=== PATIENT | female | born 1970 | race Caucasian/White ===

== ENCOUNTER → 2019-11-26 13:18 | Outpatient (CLI) | payer OTHER, SELFPAY | PROVIDERS: Family Provider Family Medicine; PCP Family Medicine; Visit Provider Physician Assistant | DX: R30.0 Dysuria (principal) | CPT/HCPCS: 87086 ==

== ENCOUNTER → 2019-12-05 13:28 | Outpatient (CLI) | payer OTHER, SELFPAY ==
--- NOTE | 2019-12-05 13:32 | DI.RAD.S_ITS ---
PROCEDURE: XR CHEST 2V INDICATIONS: [place] travel, cough, night sweats, r/o TB/pneumonia TECHNIQUE: 2 views of the chest were acquired. COMPARISON: None. FINDINGS: Surgical changes and devices: None. Lungs and pleura: No consolidative opacity. Diffuse increased pulmonary markings bilaterally. No pleural effusions or pneumothorax. Mediastinum: Mediastinal contours appear normal. Heart size is normal. Bones and chest wall: No suspicious bony abnormalities. Soft tissues appear unremarkable. IMPRESSION: Diffuse increased pulmonary markings bilaterally. This could be due to infectious/inflammatory etiology. No mediastinal adenopathy identified. Dictated by: Meño Fay M.D. on 12/05/2019 at 13:56 Approved by: Meño Fay M.D. on 12/05/2019 at 13:57
== END ==
PROVIDERS: Family Provider Family Medicine; PCP Family Medicine; Referring Provider Physician Assistant; Visit Provider Physician Assistant
DX: J40 Bronchitis, not specified as acute or chronic (principal); R05 Cough; R19.7 Diarrhea, unspecified; R61 Generalized hyperhidrosis
CPT/HCPCS: 71046; 87177; 87507

== ENCOUNTER → 2019-12-05 13:57 | Outpatient (CLI) | payer OTHER, SELFPAY ==
[2019-12-05 16:22] LABS: Adenovirus F 40/41 Not Detected (Not Detect); Astrovirus Not Detected (Not Detect); Campylobacter Not Detected (Not Detect); Clostridium difficile toxin AB Not Detected (Not Detect); Cryptosporidium Not Detected (Not Detect); Cyclospora cayetanensis Not Detected (Not Detect); Entamoeba histolytica Not Detected (Not Detect); Enteroaggregative E.coli Not Detected (Not Detect); Enteropathogenic E.coli Not Detected (Not Detect); Enterotoxigenic E.coli It/st Not Detected (Not Detect); Giardia lamblia Not Detected (Not Detect); Norovirus GI/GII Not Detected (Not Detect); Plesiomonsa shigelloides Not Detected (Not Detect); Rotavirus A Not Detected (Not Detect); Salmonella Not Detected (Not Detect); Sapovirus Not Detected (Not Detect); Shiga-like toxin-prod E.coli Not Detected (Not Detect); Shigella/Enteroinvasive E.coli Not Detected (Not Detect); Vibrio Not Detected (Not Detect); Vibrio cholerae Not Detected (Not Detect); Yersinia enterocolitica Not Detected (Not Detect)
== END ==
PROVIDERS: Family Provider Family Medicine; PCP Family Medicine; Referring Provider Physician Assistant; Visit Provider Physician Assistant
DX: R19.7 Diarrhea, unspecified (principal)
CPT/HCPCS: 87177; 87507

== ENCOUNTER → 2019-12-12 13:22 | Outpatient (CLI) | payer OTHER, SELFPAY ==
[2019-12-12 15:27] LABS: Add Manual Diff / Slide Review NO; Basophils Absolute Auto 100 /uL (0-100); Basophils Percent Auto 0.9 % (0-2); Eosinophils Absolute Auto 100 /uL (0-450); Eosinophils Percent Auto 0.6 % (2-4); Hematocrit 33.8 % (36-46); Hemoglobin 11.2 g/dL (12.0-16.0); Lymphocytes Absolute Auto 1500 /uL (1100-4500); Lymphocytes Percent Auto 11.8 % (25-40); Mean Corpuscular HGB Conc 33.3 % (30-36); Mean Corpuscular Hemoglobin 35.5 PG (26-34); Mean Corpuscular Volume 106.8 fL (80-100); Monocytes Absolute Auto 1400 /uL (0-900); Monocytes Percent Auto 11.4 % (3-14); Neutrophils Absolute Auto 9500 /uL (1500-7000); Neutrophils Percent Auto 75.3 % (50-75); Platelet Count 445 X10^3/uL (150-400); Red Blood Cell Count 3.16 X10^6/uL (4.0-5.2); Red Cell Distribution Width 14.2 % (11.6-14.8); White Blood Cell Count 12.7 X10^3/uL (4.5-11.0)
[2019-12-12 15:41] LABS: Alanine Aminotransferase 19 IU/L (<35); Albumin 3.3 g/dL (3.5-5.0); Albumin Globulin Ratio 0.8 (1.0-2.8); Alkaline Phosphatase 131 U/L (38-126); Aspartate Aminotransferase 37 IU/L (14-36); Bilirubin Total 0.6 mg/dL (0.2-1.3); Blood Urea Nitrogen 6 mg/dL (7-17); Calcium 8.9 mg/dL (8.4-10.2); Carbon Dioxide 27 mmol/L (22-32); Chloride 96 mmol/L (98-107); Estimated Glomerular Filt Rate > 60.0 mL/min (>60); Glucose 94 mg/dL (70-100); HEMOLYSIS < 15 (0-50); Lipase 76 U/L (23-300); Potassium 4.1 mmol/L (3.4-5.1); Sodium 133 mmol/L (137-145); Total Protein 7.3 g/dL (6.3-8.2)
== END ==
PROVIDERS: Family Provider Family Medicine; Referring Provider Nurse Practitioner; Visit Provider Nurse Practitioner
DX: R10.9 Unspecified abdominal pain (principal)
CPT/HCPCS: 36415; 80053; 83690; 85025

== ENCOUNTER → 2019-12-13 14:34 | Outpatient (CLI) | payer OTHER, SELFPAY ==
--- NOTE | 2019-12-13 14:36 | DI.US.S_ITS ---
PROCEDURE: US ABDOMEN LIMITED INDICATIONS: ELEVATED LIVER ENZYMES, EPIGASTRIC PAIN.EVALUATE GALLBLADDER TECHNIQUE: Real-time focused scanning was performed of the abdomen, with image documentation. COMPARISON: None. FINDINGS: Liver appears normal, gallbladder shows no evidence of inflammation or stones. Bile ducts are normal in caliber at 5.3 mm. The pancreas visualized is normal. Left kidney appears normal, right kidney shows severe hydronephrosis with duplex collecting system in the upper proximal right ureter is 2.3 cm with a lower proximal right ureter 2.6 cm area urinary bladder is empty. IMPRESSION: Source of elevated liver function tests is not found. Hydronephrosis on the right is noted with a duplex collecting system showing dilated proximal ureters to each of the 2 collecting systems on the right. The left kidney appears normal. Please correlate clinically for whether this is a known right-sided chronic morphologic anomaly for the patient, versus a new finding. If this is a new finding urology consultation is recommended and CT scanning may become necessary. Pelvic ultrasound is scheduled for tomorrow. Dictated by: Estevan Ellis M.D. on 12/13/2019 at 16:35 Approved by: Estevan Ellis M.D. on 12/13/2019 at 16:37
== END ==
PROVIDERS: Family Provider Family Medicine; Referring Provider Nurse Practitioner; Visit Provider Nurse Practitioner
DX: R10.13 Epigastric pain (principal); R74.8 Abnormal levels of other serum enzymes; N13.30 Unspecified hydronephrosis; Q62.5 Duplication of ureter
CPT/HCPCS: 76705

== ENCOUNTER → 2019-12-14 13:32 | Outpatient (CLI) | payer OTHER, SELFPAY ==
--- NOTE | 2019-12-14 13:33 | DI.US.S_ITS ---
PROCEDURE: US PELVIC COMPLETE INDICATIONS: MID/LOWER ABD/PELVIC PAIN X 3 WEEKS TECHNIQUE: Real-time scanning was performed of the pelvic organs, with image documentation. Additional endovaginal scanning was necessary due to incomplete visualization of the adnexal and endometrial structures by transabdominal scanning. COMPARISON: [facility], , US ABDOMEN LIMITED, 12/13/2019, 14:47. FINDINGS: Transabdominal scanning: Limited scanning through the kidneys shows no hydronephrosis. No pathologic free abdominal or pelvic fluid. Endovaginal scanning: Uterus: Uterus is normal in size at 4.0 x 5.3 x 8.8 cm, anteverted. The endometrium measures 3.4 mm in combined thickness, with a centrally positioned IUD.. Ovaries: At what appears to be a right adnexal structures an ovoid 3.9 x 3.1 x 4.1 cm masslike structure can be seen, and it is unclear whether this could represent a independent adnexal solid mass from the right ovary, versus an exophytic subserosal fibroid. The left ovary measures 2.6 x 1.4 x 2.3 cm. It contains a small moderately complex 1.0 x 1.3 x 1.7 cm cyst. IMPRESSION: 1. The ultrasound of the abdomen yesterday had identified a moderate degree of hydronephrosis and the finding of what appears to be a potential right ovarian solid mass impinging on the expected course of the distal right ureter is a worrisome finding for possible underlying malignancy. Pelvic MR is recommended without and with contrast for more accurate assessment. The ultrasound findings are insufficient to establish a definitive diagnosis and gynecological consultation also is anticipated. 2. IUD in central position within the endometrial canal. Dictated by: Estevan Ellis M.D. on 12/14/2019 at 15:40 Approved by: Estevan Ellis M.D. on 12/14/2019 at 15:46
== END ==
PROVIDERS: Family Provider Family Medicine; Referring Provider Nurse Practitioner; Visit Provider Nurse Practitioner
DX: R10.2 Pelvic and perineal pain (principal); R10.30 Lower abdominal pain, unspecified; N83.292 Other ovarian cyst, left side; Z97.5 Presence of (intrauterine) contraceptive device
CPT/HCPCS: 76830; 76856

== ENCOUNTER 2019-12-25 11:53 | Emergency (ER) | payer OTHER, SELFPAY ==
[2019-12-25 12:12] VITALS: BP 102/67; PULSE 105; RESP 18; TEMP 36.7; O2SAT 99
[2019-12-25] MEDS: SODIUM CHLORIDE 0.9% 1,000 ML 1000 ML IV (12:34)
[2019-12-25 12:39] LABS: Add Manual Diff / Slide Review NO; Basophils Absolute Auto 0 /uL (0-100); Basophils Percent Auto 0.2 % (0-2); Eosinophils Absolute Auto 100 /uL (0-450); Eosinophils Percent Auto 0.7 % (2-4); Lymphocytes Absolute Auto 1100 /uL (1100-4500); Lymphocytes Percent Auto 9.1 % (25-40); Mean Corpuscular HGB Conc 33.4 % (30-36); Mean Corpuscular Hemoglobin 34.6 PG (26-34); Mean Corpuscular Volume 103.6 fL (80-100); Monocytes Absolute Auto 1400 /uL (0-900); Monocytes Percent Auto 12.5 % (3-14); Neutrophils Absolute Auto 9000 /uL (1500-7000); Neutrophils Percent Auto 77.5 % (50-75); Platelet Count 449 X10^3/uL (150-400); Red Cell Distribution Width 14.5 % (11.6-14.8); White Blood Cell Count 11.6 X10^3/uL (4.5-11.0)
[2019-12-25 12:45] LABS: INR 1.4 (0.9-1.3); Prothrombin Time 16.4 SECONDS (10.1-12.7)
[2019-12-25 12:48] LABS: PTT Partial Thromboplastin Tim 31 SECONDS (26.4-36.2)
[2019-12-25 12:49] LABS: Alanine Aminotransferase 17 IU/L (<35); Albumin Globulin Ratio 0.7 (1.0-2.8); Alkaline Phosphatase 163 U/L (38-126); Aspartate Aminotransferase 36 IU/L (14-36); Bilirubin Total 0.8 mg/dL (0.2-1.3); Blood Urea Nitrogen 6 mg/dL (7-17); Calcium 8.7 mg/dL (8.4-10.2); Carbon Dioxide 23 mmol/L (22-32); Chloride 102 mmol/L (98-107); Estimated Glomerular Filt Rate > 60.0 mL/min (>60); Globulin 4.3 g/dL (1.7-4.1); Glucose 107 mg/dL (70-100); Lipase 42 U/L (23-300); Potassium 3.9 mmol/L (3.4-5.1); Sodium 135 mmol/L (137-145); Total Protein 7.3 g/dL (6.3-8.2)
[2019-12-25 12:50] LABS: Lactate (Lactic Acid) 0.9 mmol/L (0.7-2.1)
[2019-12-25 12:52] LABS: HEMOLYSIS 70 (0-50)
[2019-12-25 13:00] VITALS: BP 92/59; PULSE 73; O2SAT 99
[2019-12-25 13:12] LABS: Procalcitonin 24.57 ng/mL (<0.5)
[2019-12-25 13:50] LABS: Magnesium 1.6 mg/dL (1.6-2.3)
[2019-12-25 13:52] LABS: Appearance Urine UA SL CLOUDY; Bilirubin Urine UA NEGATIVE (NEGATIVE); Color Urine UA YELLOW; Glucose Urine UA NEGATIVE (Negative); Ketones Urine UA TRACE (NEGATIVE); Leukocyte Esterase Urine UA 1+ (NEGATIVE); Nitrite Urine UA NEGATIVE (Negative); Occult Blood Urine UA NEGATIVE (Negative); Protein Urine UA TRACE (Negative); Specific Gravity Urine UA <=1.005 (1.000-1.035); Urobilinogen Urine UA 0.2 E.U./dL (0.2); pH Urine UA 6.5 (4.5-8.0)
[2019-12-25 13:55] LABS: RBC Urine 0-1/HPF (0-5/HPF); Squamous Epithelial Cell Urine 10-30 /HPF (0-5/HPF); WBC Urine 10-30/HPF (0-5/HPF)
[2019-12-25 13:56] LABS: Bacteria Urine Many (>30); Culture Indicated Urine Cult Not Indicated
--- NOTE | 2019-12-25 14:08 | ED.NAVMDI ---
HPI - Nausea/Vomiting/Diarrhea <MELANIE Carlson - Last Filed: 12/25/19 22:27> General Chief complaint: Nausea/Vomiting/Diarrhea Stated complaint: Cant eat x3days,Diarhea Time Seen by Provider: 12/25/19 12:31 Source: patient Mode of arrival: Ambulatory Limitations: no limitations History of Present Illness HPI Narrative: This is a 49 year female, smoker, who presents to ED with chief complain of constant bilateral low abdominal discomfort, not feeling well, chronic diarrhea without blood, decreased appetite with occasional fever and chills. Patient reports she was seen at walk-in clinic a few days ago and had extensive workup done including stools tests, blood tests, pelvic/abdomen ultrasound tests. Imaging/lab tests showed right kidney hydronephrosis, elevated LFTs and right ovarian solid mass impinging on the expected course of the right ureter is worrisome findings for possible malignancy and it was suggested for pelvic MR and this is scheduled for tomorrow at 0645 with an initial appointment with [facility] specialist at [facility] during the afternoon. Related Data Home Medications Medication Instructions Recorded Confirmed [fiber] #0 06/13/17 12/12/19 [liver] #0 06/13/17 12/12/19 biotin 2,500 mcg PO #0 06/13/17 12/12/19 lysine HCl 500 mg PO #0 06/13/17 12/12/19 Previous Rx's Medication Instructions Recorded benzonatate 100 mg capsule 100 mg PO BID PRN #20 cap 12/05/19 hydrocodone-acetaminophen [[place]] 1 tab PO Q8H PRN #7 tab 12/25/19 ondansetron 4 mg PO Q8-12H PRN #7 tab 12/25/19 Allergies Allergy/AdvReac Type Severity Reaction Status Date / Time No Known Drug Allergies Allergy Verified 12/25/19 12:18 Review of Systems <MELANIE Carlson - Last Filed: 12/25/19 22:27> Review of Systems Narrative: General: Denies fever, (+) chills, (+) fatigue, (+) malaise, sweats. HEENT: Denies sinus pain, ear pain, sore throat, difficulty swallowing, dizziness. Respiratory: Denies dyspnea, cough, wheezing, hemoptysis, sputum. Cardiovascular: Denies chest pain, palpitations, orthopnea, edema. Gastrointestinal: Denies (+) nausea, vomiting, abdominal pain, (+) diarrhea, constipation, melena. : Denies ) dysuria, (+) frequency, incontinence, hematuria, urinary retention. Musculoskeletal: Denies weakness, joint pain or bony pain. Skin: Denies rash, skin lesions, or other. Neurologic: Denies weakness, headache, numbness, change in speech, confusion, seizures, incoordination. Psychiatric: No concerning psychosocial issues. 12-point review of systems is negative except for those stated above. Patient History <MELANIE Carlson - Last Filed: 12/25/19 22:27> Medical History Bronchitis (Acute) Diarrhea (Acute) Social History Smoking Status: Current every day smoker Smoking Status: Current every day smoker alcohol intake frequency: 3 or more drinks per day (2 wine bottles a day) Substance Use Type: does not use Exam <MELANIE Carlson - Last Filed: 12/25/19 22:27> Narrative Exam Narrative: GEN: Alert, oriented x 3, thin appearing and under nourished, and in no acute distress. Head: Normal cephalic, atraumatic. No scalp or temporal tenderness, palpable mass or rash. EYES: Pupils are equal, round, and reactive to light and accommodation. Extraocular muscles are intact bilaterally. There is no subconjunctival hemorrhage, exudate and sclera non-icteric. ENT: Bilateral auditory canals and tympanic membranes clear. Hearing grossly intact. Nose without bleeding, purulent discharge or deviation. Facial sinuses nontender to palpate. Mucous membrane moist, no mucosal lesion. Throat without erythema, tonsillar hypertrophy or exudate. Uvula in midline, airway patent. Neck: Trachea in midline. No JVD, non-tender without lymphadenopathy. No masses or thyroid megaly. Supple, non-tender and no meningeal signs. CARDIAC: Normal regular rate and rhythm without murmurs, gallops, or rubs. No chest wall tenderness. No peripheral edema, cyanosis or pallor. Capillary refill is less than 2 seconds. RESPIRATORY: Lungs are clear to auscultate bilaterally. No cough, wheezes, rales, or rhonchi. No stridor, respiratory distress, increase work of breathing, or accessary muscle used. ABD: Abdomen soft, mild TTP on lower abdomen and non-distended. No guarding or rebound tenderness to palpate. Bowel sounds are normal in all 4 quadrants. There is no palpable masses or organomegaly. EXT: Full painless ROM of all extremities with no loss of sensation, strength, effusion or edema. SKIN: Warm, dry, normal color for patient. No erythema, lesions or rash over visible areas. BACK: Nontender without deformity or crepitance. No flank tenderness. NEUROLOGICAL: Alert and oriented to place, time and person. Sensation and motor function intact bilaterally. No facial droops, dysphasia. PSYCHIATRIC: Good judgement and reason, without hallucinations, abnormal affect or abnormal behaviors during the examination. Patient is not suicidal. Initial Vital Signs Initial Vital Signs: Vital Signs Temperature 98.1 F 12/25/19 12:12 Pulse Rate 105 H 12/25/19 12:12 Respiratory Rate 18 12/25/19 12:12 Blood Pressure 102/67 12/25/19 12:12 Pulse Oximetry 99 12/25/19 12:12 <Jaime Caballero DO - Last Filed: 12/26/19 06:58> Initial Vital Signs Initial Vital Signs: Vital Signs Temperature 98.1 F 12/25/19 12:12 Pulse Rate 105 H 12/25/19 12:12 Respiratory Rate 18 12/25/19 12:12 Blood Pressure 102/67 12/25/19 12:12 Pulse Oximetry 99 12/25/19 12:12 Scores <MELANIE Carlson - Last Filed: 12/25/19 22:27> GCS Adriana coma scale eye opening: Spontaneous [place] coma scale verbal response: Orientated Adriana coma scale motor response: Obey commands Wy[place] coma scale total score: 15 Course <MELANIE Carlson - Last Filed: 12/25/19 22:27> Orders Ordered: Discontinued Medications Sodium Chloride (Normal Saline 0.9%) 1,000 mls @ 1,000 mls/hr IV BOLUS ONE Stop: 12/25/19 13:18 Last Infusion: 12/25/19 13:38 Dose: 0 mls/hr Documented by: Admin: 12/25/19 12:34 Dose: 1,000 mls/hr Documented by: VANITA Vital Signs Vital signs: Vital Signs - 8 hr 12/25/19 14:15 12/25/19 15:16 Pulse Rate 77 77 Respiratory Rate 15 Blood Pressure [Left Arm] 105/62 97/63 Pulse Oximetry 98 96 <Jaime Caballero DO - Last Filed: 12/26/19 06:58> Orders Ordered: Discontinued Medications Sodium Chloride (Normal Saline 0.9%) 1,000 mls @ 1,000 mls/hr IV BOLUS ONE Stop: 12/25/19 13:18 Last Infusion: 12/25/19 13:38 Dose: 0 mls/hr Documented by: Admin: 12/25/19 12:34 Dose: 1,000 mls/hr Documented by: VANITA Vital Signs Vital signs: Vital Signs - 8 hr 12/25/19 14:15 12/25/19 15:16 Pulse Rate 77 77 Respiratory Rate 15 Blood Pressure [Left Arm] 105/62 97/63 Pulse Oximetry 98 96 MDM - Nausea/Vomiting/Diarrhea <MELANIE Carlson - Last Filed: 12/25/19 22:27> Differential Diagnosis Differential diagnosis: Likely traveler's diarrhea, gastroenteritis, dehydration and other (pelvic mass, pelvic abscess) Medical Records Attestation: I reviewed the patient's medical records. Lab Data Attestation: I reviewed the patient's lab results. Result diagrams: 12/25/19 12:25 12/25/19 12:25 Labs: Lab Results 12/25/19 12/25/19 12/25/19 Range/Units 12:25 12:25 12:25 WBC 11.6 H (4.5-11.0) X10^3/uL RBC 2.90 L (4.0-5.2) X10^6/uL Hgb 10.0 L (12.0-16.0) g/dL Hct 30.0 L (36-46) % MCV 103.6 H (80-100) fL MCH 34.6 H (26-34) PG MCHC 33.4 (30-36) % RDW 14.5 (11.6-14.8) % Plt Count 449 H (150-400) X10^3/uL Neut % (Auto) 77.5 H (50-75) % Lymph % (Auto) 9.1 L (25-40) % [place] % (Auto) 12.5 (3-14) % Eos % (Auto) 0.7 L (2-4) % Baso % (Auto) 0.2 (0-2) % Neut # (Auto) 9000 H (7726-6782) /uL Lymph # (Auto) 1100 (2316-6877) /uL [place] # (Auto) 1400 H (0-900) /uL Eos # (Auto) 100 (0-450) /uL Baso # (Auto) 0 (0-100) /uL PT 16.4 H (10.1-12.7) SECONDS INR 1.4 H (0.9-1.3) APTT 31 (26.4-36.2) SECONDS Sodium (137-145) mmol/L Potassium (3.4-5.1) mmol/L Chloride (98-107) mmol/L Carbon Dioxide (22-32) mmol/L BUN (7-17) mg/dL Creatinine (0.52-1.04) mg/dL Estimated GFR (>60) mL/min BUN/Creatinine Ratio (6-22) Glucose (70-100) mg/dL Lactate (0.7-2.1) mmol/L Calcium (8.4-10.2) mg/dL Magnesium (1.6-2.3) mg/dL Total Bilirubin (0.2-1.3) mg/dL AST (14-36) IU/L ALT (<35) IU/L Alkaline Phosphatase (38-126) U/L Total Protein (6.3-8.2) g/dL Albumin (3.5-5.0) g/dL Globulin (1.7-4.1) g/dL Albumin/Globulin Ratio (1.0-2.8) Lipase (23-300) U/L Procalcitonin 24.57 H (<0.5) ng/mL Urine Color Urine Appearance Urine pH (4.5-8.0) Ur Specific [place] (1.000-1.035) Urine Protein (Negative) Urine Glucose (UA) (Negative) g/dL Urine Ketones (NEGATIVE) Urine Occult Blood (Negative) Urine Nitrate (Negative) Urine Bilirubin (NEGATIVE) Urine Urobilinogen (0.2) E.U./dL Ur Leukocyte Esterase (NEGATIVE) Urine RBC (0-5/HPF) Urine WBC (0-5/HPF) Ur Squamous Epith Cells (0-5/HPF) Urine Bacteria (None) Ur Culture Indicated? Stl C. cayetanensis PCR (Not Detect) Stool Rotavirus (PCR) (Not Detect) Stool Adenovirus (PCR) (Not Detect) Stool Astrovirus (PCR) (Not Detect) Stool Cryptosporidium PCR (Not Detect) Stl E.coli Shiga Tox PCR (Not Detect) St Sh/Enteroin Ecoli PCR (Not Detect) Stool E coli O157 PCR Stl Enterotoxigenic E PCR (Not Detect) Stool EPEC (PCR) (Not Detect) Stl E. histolytica PCR (Not Detect) Stool Giardia Lamblia PCR (Not Detect) Stool Sapovirus (PCR) (Not Detect) Stl P. shigelloides PCR (Not Detect) St Y.enterocolitica PCR (Not Detect) Stool Vibrio (PCR) (Not Detect) Stl Vibrio cholerae PCR (Not Detect) Stl Enteroaggr Ecoli PCR (Not Detect) Stl Norovirus GI/GII PCR (Not Detect) Campylobacter (PCR) (Not Detect) C. difficile Tox (PCR) (Not Detect) Salmonella (PCR) (Not Detect) 12/25/19 12/25/19 12/25/19 Range/Units 12:25 12:25 12:25 WBC (4.5-11.0) X10^3/uL RBC (4.0-5.2) X10^6/uL Hgb (12.0-16.0) g/dL Hct (36-46) % MCV (80-100) fL MCH (26-34) PG MCHC (30-36) % RDW (11.6-14.8) % Plt Count (150-400) X10^3/uL Neut % (Auto) (50-75) % Lymph % (Auto) (25-40) % [place] % (Auto) (3-14) % Eos % (Auto) (2-4) % Baso % (Auto) (0-2) % Neut # (Auto) (7615-7147) /uL Lymph # (Auto) (9772-3391) /uL [place] # (Auto) (0-900) /uL Eos # (Auto) (0-450) /uL Baso # (Auto) (0-100) /uL PT (10.1-12.7) SECONDS INR (0.9-1.3) APTT (26.4-36.2) SECONDS Sodium 135 L (137-145) mmol/L Potassium 3.9 (3.4-5.1) mmol/L Chloride 102 (98-107) mmol/L Carbon Dioxide 23 (22-32) mmol/L BUN 6 L (7-17) mg/dL Creatinine 0.40 L (0.52-1.04) mg/dL Estimated GFR > 60.0 (>60) mL/min BUN/Creatinine Ratio 15.0 (6-22) Glucose 107 H (70-100) mg/dL Lactate 0.9 (0.7-2.1) mmol/L Calcium 8.7 (8.4-10.2) mg/dL Magnesium 1.6 (1.6-2.3) mg/dL Total Bilirubin 0.8 (0.2-1.3) mg/dL AST 36 (14-36) IU/L ALT 17 (<35) IU/L Alkaline Phosphatase 163 H (38-126) U/L Total Protein 7.3 (6.3-8.2) g/dL Albumin 3.0 L (3.5-5.0) g/dL Globulin 4.3 H (1.7-4.1) g/dL Albumin/Globulin Ratio 0.7 L (1.0-2.8) Lipase 42 (23-300) U/L Procalcitonin (<0.5) ng/mL Urine Color Urine Appearance Urine pH (4.5-8.0) Ur Specific [place] (1.000-1.035) Urine Protein (Negative) Urine Glucose (UA) (Negative) g/dL Urine Ketones (NEGATIVE) Urine Occult Blood (Negative) Urine Nitrate (Negative) Urine Bilirubin (NEGATIVE) Urine Urobilinogen (0.2) E.U./dL Ur Leukocyte Esterase (NEGATIVE) Urine RBC (0-5/HPF) Urine WBC (0-5/HPF) Ur Squamous Epith Cells (0-5/HPF) Urine Bacteria (None) Ur Culture Indicated? Stl C. cayetanensis PCR (Not Detect) Stool Rotavirus (PCR) (Not Detect) Stool Adenovirus (PCR) (Not Detect) Stool Astrovirus (PCR) (Not Detect) Stool Cryptosporidium PCR (Not Detect) Stl E.coli Shiga Tox PCR (Not Detect) St Sh/Enteroin Ecoli PCR (Not Detect) Stool E coli O157 PCR Stl Enterotoxigenic E PCR (Not Detect) Stool EPEC (PCR) (Not Detect) Stl E. histolytica PCR (Not Detect) Stool Giardia Lamblia PCR (Not Detect) Stool Sapovirus (PCR) (Not Detect) Stl P. shigelloides PCR (Not Detect) St Y.enterocolitica PCR (Not Detect) Stool Vibrio (PCR) (Not Detect) Stl Vibrio cholerae PCR (Not Detect) Stl Enteroaggr Ecoli PCR (Not Detect) Stl Norovirus GI/GII PCR (Not Detect) Campylobacter (PCR) (Not Detect) C. difficile Tox (PCR) (Not Detect) Salmonella (PCR) (Not Detect) 12/25/19 12/25/19 Range/Units 13:33 13:33 WBC (4.5-11.0) X10^3/uL RBC (4.0-5.2) X10^6/uL Hgb (12.0-16.0) g/dL Hct (36-46) % MCV (80-100) fL MCH (26-34) PG MCHC (30-36) % RDW (11.6-14.8) % Plt Count (150-400) X10^3/uL Neut % (Auto) (50-75) % Lymph % (Auto) (25-40) % [place] % (Auto) (3-14) % Eos % (Auto) (2-4) % Baso % (Auto) (0-2) % Neut # (Auto) (1295-3230) /uL Lymph # (Auto) (2741-5897) /uL [place] # (Auto) (0-900) /uL Eos # (Auto) (0-450) /uL Baso # (Auto) (0-100) /uL PT (10.1-12.7) SECONDS INR (0.9-1.3) APTT (26.4-36.2) SECONDS Sodium (137-145) mmol/L Potassium (3.4-5.1) mmol/L Chloride (98-107) mmol/L Carbon Dioxide (22-32) mmol/L BUN (7-17) mg/dL Creatinine (0.52-1.04) mg/dL Estimated GFR (>60) mL/min BUN/Creatinine Ratio (6-22) Glucose (70-100) mg/dL Lactate (0.7-2.1) mmol/L Calcium (8.4-10.2) mg/dL Magnesium (1.6-2.3) mg/dL Total Bilirubin (0.2-1.3) mg/dL AST (14-36) IU/L ALT (<35) IU/L Alkaline Phosphatase (38-126) U/L Total Protein (6.3-8.2) g/dL Albumin (3.5-5.0) g/dL Globulin (1.7-4.1) g/dL Albumin/Globulin Ratio (1.0-2.8) Lipase (23-300) U/L Procalcitonin (<0.5) ng/mL Urine Color Yellow Urine Appearance Sl cloudy Urine pH 6.5 (4.5-8.0) Ur Specific [place] <=1.005 (1.000-1.035) Urine Protein Trace H (Negative) Urine Glucose (UA) Negative (Negative) g/dL Urine Ketones Trace H (NEGATIVE) Urine Occult Blood Negative (Negative) Urine Nitrate Negative (Negative) Urine Bilirubin Negative (NEGATIVE) Urine Urobilinogen 0.2 (0.2) E.U./dL Ur Leukocyte Esterase 1+ H (NEGATIVE) Urine RBC 0-1/hpf (0-5/HPF) Urine WBC 10-30/hpf H (0-5/HPF) Ur Squamous Epith Cells 10-30 /hpf H (0-5/HPF) Urine Bacteria Many (>30) H (None) Ur Culture Indicated? Cult not indicated Stl C. cayetanensis PCR Not detected (Not Detect) Stool Rotavirus (PCR) Not detected (Not Detect) Stool Adenovirus (PCR) Not detected (Not Detect) Stool Astrovirus (PCR) Not detected (Not Detect) Stool Cryptosporidium PCR Not detected (Not Detect) Stl E.coli Shiga Tox PCR Not detected (Not Detect) St Sh/Enteroin Ecoli PCR Not detected (Not Detect) Stool E coli O157 PCR Not Reportable Stl Enterotoxigenic E PCR Not detected (Not Detect) Stool EPEC (PCR) Not detected (Not Detect) Stl E. histolytica PCR Not detected (Not Detect) Stool Giardia Lamblia PCR Not detected (Not Detect) Stool Sapovirus (PCR) Not detected (Not Detect) Stl P. shigelloides PCR Not detected (Not Detect) St Y.enterocolitica PCR Not detected (Not Detect) Stool Vibrio (PCR) Not detected (Not Detect) Stl Vibrio cholerae PCR Not detected (Not Detect) Stl Enteroaggr Ecoli PCR Not detected (Not Detect) Stl Norovirus GI/GII PCR Not detected (Not Detect) Campylobacter (PCR) Not detected (Not Detect) C. difficile Tox (PCR) Not detected (Not Detect) Salmonella (PCR) Not detected (Not Detect) MDM Narrative Medical decision making narrative: This is a 49-year-old female who presents to ED with generalized malaise, diarrhea for last 4+ weeks, decreased appetite and solid intake. She was initially evaluated at walk-in clinic and recently diagnosed with possible right ovarian solid mass vs. exophytic subserosal mass the size of 3.9x 3.1x 4.1 cm per Pelvic US test on 12/14/2019 and no hydronephrosis has been seen this time. Abdominal US test was done on 12/13/2019 and at this time it was indicated right kidney hydronephrosis likely from right ovarian mass impinging on the expected course of the distal right ureter. Patient has MR imaging tests to follow-up on ovarian mass test tomorrow morning at 6:45 a.m. with the initial appointment with rn progressive care specialist tomorrow afternoon to follow-up on this. Today's lab test shows slightly decreased WBC of 11.6 from 12.7 (12/12/19) and decrease in H/H of 10 and 20 from 11.2/33.8 (12/12/19). Lactate was normal but there was a significant elevation in procalcitonin of 24.57. Na was 135 with normal K without obvious signs of dehydration or today. She drinks average 2 bottles of wine a day and Alk phosphate was slightly increased to 163 with normal Lipase. Ca level was WNL. PLT was mildly elevated to 449. Stool panel was again negative today. Patient not toxic appearing without symptoms of chest pain, breathing difficulty or dizziness. Patient was hydrated with normal saline 1 L. Attempted to obtain MR testing today since she presents to ED but was unable to. UA was negative for urine nitrate and 1+ urine leuko site esterase. The microscopic UA shows urine squamous epithelia cells with bacteria and WBC and is likely from contaminated urine sample. Consulted Dr. Boyd over the phone and no further additional lab test was requested and to proceed with tomorrow's MR tests as scheduled and to follow up with rn progressive care specialist during afternoon to discussed findings. Strict return precautions were discussed with the patient and patient verbalized the understanding and in agreement with the treatment plan. Patient discharged to home with Zofran for nausea and [place] for severe pain along the narcotic med precaution. <Jaime Caballero, DO - Last Filed: 12/26/19 06:58> Lab Data Labs: Lab Results 12/25/19 12/25/19 12/25/19 Range/Units 12:25 12:25 12:25 WBC 11.6 H (4.5-11.0) X10^3/uL RBC 2.90 L (4.0-5.2) X10^6/uL Hgb 10.0 L (12.0-16.0) g/dL Hct 30.0 L (36-46) % MCV 103.6 H (80-100) fL MCH 34.6 H (26-34) PG MCHC 33.4 (30-36) % RDW 14.5 (11.6-14.8) % Plt Count 449 H (150-400) X10^3/uL Neut % (Auto) 77.5 H (50-75) % Lymph % (Auto) 9.1 L (25-40) % [place] % (Auto) 12.5 (3-14) % Eos % (Auto) 0.7 L (2-4) % Baso % (Auto) 0.2 (0-2) % Neut # (Auto) 9000 H (7302-4932) /uL Lymph # (Auto) 1100 (1459-4357) /uL [place] # (Auto) 1400 H (0-900) /uL Eos # (Auto) 100 (0-450) /uL Baso # (Auto) 0 (0-100) /uL PT 16.4 H (10.1-12.7) SECONDS INR 1.4 H (0.9-1.3) APTT 31 (26.4-36.2) SECONDS Sodium (137-145) mmol/L Potassium (3.4-5.1) mmol/L Chloride (98-107) mmol/L Carbon Dioxide (22-32) mmol/L BUN (7-17) mg/dL Creatinine (0.52-1.04) mg/dL Estimated GFR (>60) mL/min BUN/Creatinine Ratio (6-22) Glucose (70-100) mg/dL Lactate (0.7-2.1) mmol/L Calcium (8.4-10.2) mg/dL Magnesium (1.6-2.3) mg/dL Total Bilirubin (0.2-1.3) mg/dL AST (14-36) IU/L ALT (<35) IU/L Alkaline Phosphatase (38-126) U/L Total Protein (6.3-8.2) g/dL Albumin (3.5-5.0) g/dL Globulin (1.7-4.1) g/dL Albumin/Globulin Ratio (1.0-2.8) Lipase (23-300) U/L Procalcitonin 24.57 H (<0.5) ng/mL Urine Color Urine Appearance Urine pH (4.5-8.0) Ur Specific [place] (1.000-1.035) Urine Protein (Negative) Urine Glucose (UA) (Negative) g/dL Urine Ketones (NEGATIVE) Urine Occult Blood (Negative) Urine Nitrate (Negative) Urine Bilirubin (NEGATIVE) Urine Urobilinogen (0.2) E.U./dL Ur Leukocyte Esterase (NEGATIVE) Urine RBC (0-5/HPF) Urine WBC (0-5/HPF) Ur Squamous Epith Cells (0-5/HPF) Urine Bacteria (None) Ur Culture Indicated? Stl C. cayetanensis PCR (Not Detect) Stool Rotavirus (PCR) (Not Detect) Stool Adenovirus (PCR) (Not Detect) Stool Astrovirus (PCR) (Not Detect) Stool Cryptosporidium PCR (Not Detect) Stl E.coli Shiga Tox PCR (Not Detect) St Sh/Enteroin Ecoli PCR (Not Detect) Stool E coli O157 PCR Stl Enterotoxigenic E PCR (Not Detect) Stool EPEC (PCR) (Not Detect) Stl E. histolytica PCR (Not Detect) Stool Giardia Lamblia PCR (Not Detect) Stool Sapovirus (PCR) (Not Detect) Stl P. shigelloides PCR (Not Detect) St Y.enterocolitica PCR (Not Detect) Stool Vibrio (PCR) (Not Detect) Stl Vibrio cholerae PCR (Not Detect) Stl Enteroaggr Ecoli PCR (Not Detect) Stl Norovirus GI/GII PCR (Not Detect) Campylobacter (PCR) (Not Detect) C. difficile Tox (PCR) (Not Detect) Salmonella (PCR) (Not Detect) 12/25/19 12/25/19 12/25/19 Range/Units 12:25 12:25 12:25 WBC (4.5-11.0) X10^3/uL RBC (4.0-5.2) X10^6/uL Hgb (12.0-16.0) g/dL Hct (36-46) % MCV (80-100) fL MCH (26-34) PG MCHC (30-36) % RDW (11.6-14.8) % Plt Count (150-400) X10^3/uL Neut % (Auto) (50-75) % Lymph % (Auto) (25-40) % [place] % (Auto) (3-14) % Eos % (Auto) (2-4) % Baso % (Auto) (0-2) % Neut # (Auto) (5607-2555) /uL Lymph # (Auto) (3906-1111) /uL [place] # (Auto) (0-900) /uL Eos # (Auto) (0-450) /uL Baso # (Auto) (0-100) /uL PT (10.1-12.7) SECONDS INR (0.9-1.3) APTT (26.4-36.2) SECONDS Sodium 135 L (137-145) mmol/L Potassium 3.9 (3.4-5.1) mmol/L Chloride 102 (98-107) mmol/L Carbon Dioxide 23 (22-32) mmol/L BUN 6 L (7-17) mg/dL Creatinine 0.40 L (0.52-1.04) mg/dL Estimated GFR > 60.0 (>60) mL/min BUN/Creatinine Ratio 15.0 (6-22) Glucose 107 H (70-100) mg/dL Lactate 0.9 (0.7-2.1) mmol/L Calcium 8.7 (8.4-10.2) mg/dL Magnesium 1.6 (1.6-2.3) mg/dL Total Bilirubin 0.8 (0.2-1.3) mg/dL AST 36 (14-36) IU/L ALT 17 (<35) IU/L Alkaline Phosphatase 163 H (38-126) U/L Total Protein 7.3 (6.3-8.2) g/dL Albumin 3.0 L (3.5-5.0) g/dL Globulin 4.3 H (1.7-4.1) g/dL Albumin/Globulin Ratio 0.7 L (1.0-2.8) Lipase 42 (23-300) U/L Procalcitonin (<0.5) ng/mL Urine Color Urine Appearance Urine pH (4.5-8.0) Ur Specific [place] (1.000-1.035) Urine Protein (Negative) Urine Glucose (UA) (Negative) g/dL Urine Ketones (NEGATIVE) Urine Occult Blood (Negative) Urine Nitrate (Negative) Urine Bilirubin (NEGATIVE) Urine Urobilinogen (0.2) E.U./dL Ur Leukocyte Esterase (NEGATIVE) Urine RBC (0-5/HPF) Urine WBC (0-5/HPF) Ur Squamous Epith Cells (0-5/HPF) Urine Bacteria (None) Ur Culture Indicated? Stl C. cayetanensis PCR (Not Detect) Stool Rotavirus (PCR) (Not Detect) Stool Adenovirus (PCR) (Not Detect) Stool Astrovirus (PCR) (Not Detect) Stool Cryptosporidium PCR (Not Detect) Stl E.coli Shiga Tox PCR (Not Detect) St Sh/Enteroin Ecoli PCR (Not Detect) Stool E coli O157 PCR Stl Enterotoxigenic E PCR (Not Detect) Stool EPEC (PCR) (Not Detect) Stl E. histolytica PCR (Not Detect) Stool Giardia Lamblia PCR (Not Detect) Stool Sapovirus (PCR) (Not Detect) Stl P. shigelloides PCR (Not Detect) St Y.enterocolitica PCR (Not Detect) Stool Vibrio (PCR) (Not Detect) Stl Vibrio cholerae PCR (Not Detect) Stl Enteroaggr Ecoli PCR (Not Detect) Stl Norovirus GI/GII PCR (Not Detect) Campylobacter (PCR) (Not Detect) C. difficile Tox (PCR) (Not Detect) Salmonella (PCR) (Not Detect) 12/25/19 12/25/19 Range/Units 13:33 13:33 WBC (4.5-11.0) X10^3/uL RBC (4.0-5.2) X10^6/uL Hgb (12.0-16.0) g/dL Hct (36-46) % MCV (80-100) fL MCH (26-34) PG MCHC (30-36) % RDW (11.6-14.8) % Plt Count (150-400) X10^3/uL Neut % (Auto) (50-75) % Lymph % (Auto) (25-40) % [place] % (Auto) (3-14) % Eos % (Auto) (2-4) % Baso % (Auto) (0-2) % Neut # (Auto) (8418-8498) /uL Lymph # (Auto) (6607-9143) /uL [place] # (Auto) (0-900) /uL Eos # (Auto) (0-450) /uL Baso # (Auto) (0-100) /uL PT (10.1-12.7) SECONDS INR (0.9-1.3) APTT (26.4-36.2) SECONDS Sodium (137-145) mmol/L Potassium (3.4-5.1) mmol/L Chloride (98-107) mmol/L Carbon Dioxide (22-32) mmol/L BUN (7-17) mg/dL Creatinine (0.52-1.04) mg/dL Estimated GFR (>60) mL/min BUN/Creatinine Ratio (6-22) Glucose (70-100) mg/dL Lactate (0.7-2.1) mmol/L Calcium (8.4-10.2) mg/dL Magnesium (1.6-2.3) mg/dL Total Bilirubin (0.2-1.3) mg/dL AST (14-36) IU/L ALT (<35) IU/L Alkaline Phosphatase (38-126) U/L Total Protein (6.3-8.2) g/dL Albumin (3.5-5.0) g/dL Globulin (1.7-4.1) g/dL Albumin/Globulin Ratio (1.0-2.8) Lipase (23-300) U/L Procalcitonin (<0.5) ng/mL Urine Color Yellow Urine Appearance Sl cloudy Urine pH 6.5 (4.5-8.0) Ur Specific [place] <=1.005 (1.000-1.035) Urine Protein Trace H (Negative) Urine Glucose (UA) Negative (Negative) g/dL Urine Ketones Trace H (NEGATIVE) Urine Occult Blood Negative (Negative) Urine Nitrate Negative (Negative) Urine Bilirubin Negative (NEGATIVE) Urine Urobilinogen 0.2 (0.2) E.U./dL Ur Leukocyte Esterase 1+ H (NEGATIVE) Urine RBC 0-1/hpf (0-5/HPF) Urine WBC 10-30/hpf H (0-5/HPF) Ur Squamous Epith Cells 10-30 /hpf H (0-5/HPF) Urine Bacteria Many (>30) H (None) Ur Culture Indicated? Cult not indicated Stl C. cayetanensis PCR Not detected (Not Detect) Stool Rotavirus (PCR) Not detected (Not Detect) Stool Adenovirus (PCR) Not detected (Not Detect) Stool Astrovirus (PCR) Not detected (Not Detect) Stool Cryptosporidium PCR Not detected (Not Detect) Stl E.coli Shiga Tox PCR Not detected (Not Detect) St Sh/Enteroin Ecoli PCR Not detected (Not Detect) Stool E coli O157 PCR Not Reportable Stl Enterotoxigenic E PCR Not detected (Not Detect) Stool EPEC (PCR) Not detected (Not Detect) Stl E. histolytica PCR Not detected (Not Detect) Stool Giardia Lamblia PCR Not detected (Not Detect) Stool Sapovirus (PCR) Not detected (Not Detect) Stl P. shigelloides PCR Not detected (Not Detect) St Y.enterocolitica PCR Not detected (Not Detect) Stool Vibrio (PCR) Not detected (Not Detect) Stl Vibrio cholerae PCR Not detected (Not Detect) Stl Enteroaggr Ecoli PCR Not detected (Not Detect) Stl Norovirus GI/GII PCR Not detected (Not Detect) Campylobacter (PCR) Not detected (Not Detect) C. difficile Tox (PCR) Not detected (Not Detect) Salmonella (PCR) Not detected (Not Detect) Discharge Plan Departure Patient Disposition: Home Clinical Impression: Mass of ovary Abdominal pain Qualifiers: Abdominal location: unspecified location Qualified Code(s): R10.9 - Unspecified abdominal pain Discharge Date/Time: 12/25/19 15:28 Instructions: DI for Abdominal Pain-Adult Activity Restrictions/Additional Instructions: You have been diagnosed with lower abdominal pain and per recent pelvic US test shows possible right-sided ovarian mass. Your blood test shows decreased H/H of 10.0/30.0 which has mild decreased from 2 weeks ago. Mildly decreased Na of 135, Alk phosphatase of 163, Procalcitonin of 24.57. Attempted obtained MR test today but this was not available. Please keep your appointment for 0645 MRI test tomorrow as scheduled and follow up with rn progressive care specialty appointment in the afternoon.]. What to do: *Take your medications as directed. Please take [id number] Tylenol and or Motrin as needed for discomfort. If you continue to have pain, please take Montclair for severe pain. This is narcotic medication as it can cause drowsiness and constipation. Please do not drive, drink alcohol or operate heavy equipments. Zofran as needed for nausea. These to medication has been transmitted to [facility]. *Follow up with [facility] specialist as scheduled tomorrow and f/u PCP. Let them know you were seen in the ED and that we asked you to be seen in follow up. *Return to ED if you have any new, worsening, or concerning symptoms, such as [chest pain, breathing difficulty, fainting episodes, high fever, severe pain, unable to tolerate fluids or any acute concerns]. Prescriptions: New hydrocodone-acetaminophen [Montclair] 5-325 mg tablet 1 tab PO Q8H PRN (Reason: pain) Qty: 7 RF: 0 ondansetron 4 mg tablet,disintegrating 4 mg PO Q8-12H PRN (Reason: nausea and vomiting) Qty: 7 RF: 0 No Action benzonatate [Tessalon Perles] 100 mg capsule 100 mg PO BID PRN (Reason: cough) Qty: 20 RF: 0 biotin 2,500 MCG capsule 2,500 mcg PO Qty: 0 RF: 0 [fiber] Qty: 0 RF: 0 [liver] Qty: 0 RF: 0 lysine HCl 500 MG tablet 500 mg PO Qty: 0 RF: 0 Referrals: Chi Gamboa DO [Physician] - <Jaime Caballero DO - Last Filed: 12/26/19 06:58> Sign Out Provider Sign Out Attestation: Dr Caballero Co-Sign Statement: I was available for consultation during this patient's emergency department visit. This chart is signed by myself for administrative purposes only. I did not have direct contact with this patient during this visit. They were seen independently by the APC.
[2019-12-25 14:15] VITALS: BP 105/62; PULSE 77; O2SAT 98
[2019-12-25 15:16] VITALS: BP 97/63; PULSE 77; RESP 15; O2SAT 96
[2019-12-25 15:21] LABS: Adenovirus F 40/41 Not Detected (Not Detect); Astrovirus Not Detected (Not Detect); Campylobacter Not Detected (Not Detect); Clostridium difficile toxin AB Not Detected (Not Detect); Cryptosporidium Not Detected (Not Detect); Cyclospora cayetanensis Not Detected (Not Detect); Entamoeba histolytica Not Detected (Not Detect); Enteroaggregative E.coli Not Detected (Not Detect); Enteropathogenic E.coli Not Detected (Not Detect); Enterotoxigenic E.coli It/st Not Detected (Not Detect); Giardia lamblia Not Detected (Not Detect); Norovirus GI/GII Not Detected (Not Detect); Plesiomonsa shigelloides Not Detected (Not Detect); Rotavirus A Not Detected (Not Detect); Salmonella Not Detected (Not Detect); Sapovirus Not Detected (Not Detect); Shiga-like toxin-prod E.coli Not Detected (Not Detect); Shigella/Enteroinvasive E.coli Not Detected (Not Detect); Vibrio Not Detected (Not Detect); Vibrio cholerae Not Detected (Not Detect); Yersinia enterocolitica Not Detected (Not Detect)
== END 2019-12-25 15:28 | disposition home or self-care (01) ==
PROVIDERS: Emergency Medicine; Emergency Provider Nurse Practitioner Family; Family Provider Family Medicine
DX: N83.8 Other noninflammatory disorders of ovary, fallopian tube and broad ligament (principal); R10.9 Unspecified abdominal pain; R19.7 Diarrhea, unspecified; R79.89 Other specified abnormal findings of blood chemistry
CPT/HCPCS: 36415; 80053; 81001; 83605; 83690; 83735; 84145; 85025; 85610; 85730; 87040; 87507; 96360; 99284

== ENCOUNTER → 2019-12-26 06:27 | Outpatient (CLI) | payer OTHER, SELFPAY ==
--- NOTE | 2019-12-26 06:29 | DI.MRI.S_ITS ---
PROCEDURE: MR PELIS WO/W CON INDICATIONS: pelvic mass TECHNIQUE: Noncontrast coronal T1 spin echo and STIR, sagittal T1 spin echo with fat saturation and STIR, axial T1 spin echo and T2 fast spin echo with fat saturation. After the administration of contrast, axial/sagittal/coronal T1 spin echo with fat saturation through the pelvis. COMPARISON: [facility], US, US PELVIC COMPLETE, 12/14/2019, 13:54. [facility], US, US ABDOMEN LIMITED, 12/13/2019, 14:47. FINDINGS: Image quality: Excellent. Bones: The visualized bone marrow demonstrates normal signal on all sequences. The overlying cortex appears intact. No abnormal intraosseous enhancement. Soft tissues: No soft tissue masses are visualized on the left. Within the pelvis on the right there is a right adnexal cystic and solid mass which measures up to 5.1 cm AP, 3.8 cm transverse and approximately 5 cm craniocaudad. This has a cystic internal components, with thick internal septations, and is not associated with adjacent adenopathy. It deviates the uterus somewhat leftward within the pelvis, and also the distal right ureter can be seen as mildly dilated to the superior posterior margin of this mass as the presumptive cause of previously identified right-sided hydronephrosis and prominence of the right renal pelvis. IUD previously documented by ultrasound. Within the peritoneal space beneath the right adnexal structure there is what appears to be a rim-enhancing centrally fluid signal peritoneal masses, multiple, in apposition. These have prominently elevated diffusion signal, and appear independent of bowel structures. More anteriorly, partially blurred by adjacent peristalsis artifact, similar rim-enhancing multifocal clustered fluid collections are seen, right greater than left. These can be seen unilaterally on the right on diffusion pulse sequence series 23 image 106 and anteriorly on image 100 from that series. The rim enhancement pattern can be seen on series 16 image 124 on the right, and more superiorly centered at and to the left of midline on image 89 from that series. This raises concern for presence of peritoneal metastatic disease. The scanned muscles demonstrate normal overall bulk and internal signal. Subcutaneous tissues appear normal as well. No abnormal soft tissue enhancement. IMPRESSION: Gynecological surgical consultation is recommended regarding the cystic and solid mass in the right adnexa and suspected peritoneal carcinomatosis. 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 A malignant right ovarian mass, however, is a potential etiology especially given the finding of what appears to be 3 separate areas of clustered cystic rim-enhancing peritoneal fluid collections. Therefore, for surgical planning it likely is warranted to obtain staging CT scanning of the chest/abdomen/pelvis. These findings are associated with mass effect against the uterus, deviating it mildly leftward. The left adnexa appears normal. Right-sided hydroureter and hydronephrosis is associated, documented recently by ultrasound. Dictated by: Estevan Ellis M.D. on 12/26/2019 at 9:59 Approved by: Estevan Ellis M.D. on 12/26/2019 at 10:41
[2019-12-26 18:14] LABS: Cancer Antigen 125 81 U/mL (0-35)
[2019-12-29 17:31] LABS: Human HE4 Antigen 71 pmol/L
== END ==
PROVIDERS: Obstetrics & Gynecology; Family Provider Family Medicine; Referring Provider Physician Assistant; Visit Provider Physician Assistant
DX: R19.00 Intra-abdominal and pelvic swelling, mass and lump, unspecified site (principal); N83.8 Other noninflammatory disorders of ovary, fallopian tube and broad ligament; N94.89 Other specified conditions associated with female genital organs and menstrual cycle; N13.30 Unspecified hydronephrosis
CPT/HCPCS: 36415; 72197; 86304; 86305

== ENCOUNTER → 2019-12-28 12:29 | Outpatient (CLI) | payer OTHER, SELFPAY ==
--- NOTE | 2019-12-28 12:30 | DI.CT.S_ITS ---
PROCEDURE: CT ABDOMEN PELVIS WO/W CON INDICATIONS: pre-treatment evaluation TECHNIQUE: After the administration of oral contrast, 5 mm thick sections acquired from the diaphragms to the iliac crests. After the administration of intravenous contrast, 5 mm thick sections acquired from the diaphragms to the symphysis. 5 mm thick coronal and sagittal reformats were acquired. For radiation dose reduction, the following was used: automated exposure control, adjustment of mA and/or kV according to patient size. COMPARISON: [facility], US, US PELVIC COMPLETE, 12/14/2019, 13:54. [facility], US, US ABDOMEN LIMITED, 12/13/2019, 14:47. [facility], MR, MR PELVIS WO/W CON, 12/26/2019, 7:22. FINDINGS: Image quality: Excellent. ABDOMEN: Lung bases: Mild bibasilar atelectasis. No pleural effusion. Heart size is normal. Solid organs: Liver is normal in size. Hepatic steatosis. Well-circumscribed hypodensity in segment 3 which most likely represents a benign cyst or hemangioma. Gallbladder is unremarkable. Biliary system is non-dilated. Pancreas enhances normally. Spleen is normal in size and enhancement. No adrenal nodules. Severe right kidney hydronephrosis. The right ureter is dilated to the level of the pelvis. Obstruction likely due to right adnexal lesion or adjacent metastatic disease. No hydronephrosis on the left. Bowel and peritoneum: Nodular soft tissue thickening at the left lateral peritoneum with adjacent fluid, (8/29). Fluid collections with peripheral enhancement and nodularity in the lower anterior abdominal wall, (/65). Soft tissue thickening in the right lower quadrant, (664 close them. Multiple dilated loops of small bowel in the right abdomen. There is a possible caliber transition in the left abdomen. Nodes and vessels: No retroperitoneal or mesenteric adenopathy by size criteria. Aorta and inferior vena are normal in caliber. Miscellaneous: No ventral hernias. PELVIS: Genitourinary: Bladder is decompressed. Right ovarian cystic and solid lesion measuring 4.1 x 3.9 cm (6/66). Cystic collection in the right lateral pelvis measuring 4.2 x 4 cm, (6/76). There is peripheral enhancement. The portion of this is in the retrovesicular space. A trace in enhancing fluid posterior to the uterus. Uterus has a heterogeneous appearance. Miscellaneous: No inguinal hernias or adenopathy. Bones: No suspicious bony lesions. No vertebral body compression fractures. Mild degenerative change most pronounced at L5-S1. IMPRESSION: 1. Right ovarian solid and cystic lesion measuring approximately 4.1 cm. This is highly suspicious for ovarian cancer. 2. Findings of peritoneal carcinomatosis with multiple areas of soft tissue thickening and fluid collections with peripheral enhancement. 3. Severe right hydroureteronephrosis. Level of obstruction in the pelvis. 4. Multiple dilated loops of small bowel in the right abdomen. Possible transition point in the left abdomen. Comment: Findings were discussed with Rachelle Muniz at the time of dictation. Dictated by: Meño Fay M.D. on 12/28/2019 at 13:50 Approved by: Meño Fay M.D. on 12/28/2019 at 14:11
== END ==
PROVIDERS: Family Provider Family Medicine; PCP Family Medicine; Referring Provider Family Medicine; Visit Provider Obstetrics & Gynecology
DX: C78.6 Secondary malignant neoplasm of retroperitoneum and peritoneum (principal); C80.1 Malignant (primary) neoplasm, unspecified; N94.89 Other specified conditions associated with female genital organs and menstrual cycle; N83.9 Noninflammatory disorder of ovary, fallopian tube and broad ligament, unspecified; N13.30 Unspecified hydronephrosis
CPT/HCPCS: 74178

== ENCOUNTER → 2020-01-03 10:33 | Outpatient (CLI) | payer OTHER, SELFPAY ==
[2020-01-03 12:13] LABS: Carcinoembryonic Antigen 8.7 ng/mL (0.1-3.0)
== END ==
PROVIDERS: Family Provider Family Medicine; PCP Family Medicine; Referring Provider Obstetrics & Gynecology; Visit Provider Obstetrics & Gynecology
DX: N83.8 Other noninflammatory disorders of ovary, fallopian tube and broad ligament (principal); R93.89 Abnormal findings on diagnostic imaging of other specified body structures
CPT/HCPCS: 36415; 82378

== ENCOUNTER → 2020-02-03 12:41 | Outpatient (CLI) | payer OTHER, SELFPAY ==
[2020-02-03 13:35] LABS: Hemoglobin 8.2 g/dL (12.0-16.0); Mean Corpuscular HGB Conc 32.7 % (30-36); Mean Corpuscular Hemoglobin 31.7 PG (26-34); Platelet Count 690 X10^3/uL (150-400); Red Blood Cell Count 2.57 X10^6/uL (4.0-5.2); Red Cell Distribution Width 18.7 % (11.6-14.8); White Blood Cell Count 18.1 X10^3/uL (4.5-11.0)
[2020-02-03 13:45] LABS: INR 1.4 (0.9-1.3); Prothrombin Time 16.5 SECONDS (10.1-12.7)
[2020-02-03 13:51] LABS: Alanine Aminotransferase 13 IU/L (<35); Albumin 2.5 g/dL (3.5-5.0); Albumin Globulin Ratio 0.6 (1.0-2.8); Alkaline Phosphatase 356 U/L (38-126); Aspartate Aminotransferase 39 IU/L (14-36); BUN Creatinine Ratio 10.3 (6-22); Bilirubin Total 0.4 mg/dL (0.2-1.3); Blood Urea Nitrogen 4 mg/dL (7-17); Calcium 8.1 mg/dL (8.4-10.2); Carbon Dioxide 25 mmol/L (22-32); Chloride 97 mmol/L (98-107); Estimated Glomerular Filt Rate > 60.0 mL/min (>60); Globulin 4.3 g/dL (1.7-4.1); Glucose 127 mg/dL (70-100); HEMOLYSIS < 15 (0-50); Potassium 3.7 mmol/L (3.4-5.1); Sodium 132 mmol/L (137-145); Total Protein 6.8 g/dL (6.3-8.2)
== END ==
PROVIDERS: Family Provider Family Medicine; PCP Family Medicine; Referring Provider Obstetrics & Gynecology Gynecologic Oncology; Visit Provider Obstetrics & Gynecology Gynecologic Oncology
DX: C78.6 Secondary malignant neoplasm of retroperitoneum and peritoneum (principal); C80.1 Malignant (primary) neoplasm, unspecified; E43 Unspecified severe protein-calorie malnutrition; N13.30 Unspecified hydronephrosis
CPT/HCPCS: 36415; 80053; 85027; 85610

== ENCOUNTER → 2020-02-15 15:59 | Outpatient (CLI) | payer OTHER, SELFPAY ==
[2020-02-15 18:03] LABS: Hematocrit 22.9 % (36-46); Hemoglobin 7.3 g/dL (12.0-16.0); Mean Corpuscular Hemoglobin 31.7 PG (26-34); Mean Corpuscular Volume 98.9 fL (80-100); Platelet Count 867 X10^3/uL (150-400); Red Blood Cell Count 2.32 X10^6/uL (4.0-5.2); Red Cell Distribution Width 19.3 % (11.6-14.8)
[2020-02-15 20:06] LABS: Alanine Aminotransferase 10 IU/L (<35); Albumin 2.6 g/dL (3.5-5.0); Albumin Globulin Ratio 0.6 (1.0-2.8); Alkaline Phosphatase 257 U/L (38-126); Aspartate Aminotransferase 24 IU/L (14-36); Bilirubin Total 0.2 mg/dL (0.2-1.3); Blood Urea Nitrogen 7 mg/dL (7-17); Calcium 8.4 mg/dL (8.4-10.2); Carbon Dioxide 23 mmol/L (22-32); Chloride 98 mmol/L (98-107); Estimated Glomerular Filt Rate > 60.0 mL/min (>60); Globulin 4.4 g/dL (1.7-4.1); Glucose 104 mg/dL (70-100); HEMOLYSIS < 15 (0-50); Potassium 3.3 mmol/L (3.4-5.1); Sodium 133 mmol/L (137-145)
== END ==
PROVIDERS: Family Provider Family Medicine; PCP Family Medicine; Referring Provider Obstetrics & Gynecology Gynecologic Oncology; Visit Provider Obstetrics & Gynecology Gynecologic Oncology
DX: C78.6 Secondary malignant neoplasm of retroperitoneum and peritoneum (principal); C80.1 Malignant (primary) neoplasm, unspecified; E43 Unspecified severe protein-calorie malnutrition; N13.30 Unspecified hydronephrosis
CPT/HCPCS: 36415; 80053; 85027

== ENCOUNTER → 2020-02-17 07:54 | Outpatient (CLI) | payer OTHER, SELFPAY ==
--- NOTE | 2020-02-17 09:12 | DI.CT.S_ITS ---
PROCEDURE: CT ABDOMEN PELVIS W CON INDICATIONS: Unspecified infectious disease TECHNIQUE: After the administration of oral and intravenous contrast, 5 mm thick sections acquired from the diaphragms to the symphysis. 5 mm thick coronal and sagittal reformats were performed. For radiation dose reduction, the following was used: automated exposure control, adjustment of mA and/or kV according to patient size. COMPARISON: [facility], CT, CT ABDOMEN PELVIS WO/W CON, 12/28/2019, 13:17. [facility], MR, MR PELVIS WO/W CON, 12/26/2019, 7:22. [facility], US, US PELVIC COMPLETE, 12/14/2019, 13:54. [facility], US, US ABDOMEN LIMITED, 12/13/2019, 14:47. FINDINGS: Image quality: Excellent. ABDOMEN: Lung bases: There is a trace right-sided pleural effusion seen. Mild streaky consolidation can be seen involving both lung bases. The heart size is within normal limits. Solid organs: Liver is normal in size and enhancement. A likely liver cyst can be seen within the left lobe, as on series 2 image 30 measuring 7 mm. Gallbladder is prominent in size and demonstrates minimal wall thickening. The common bile duct is mildly dilated at 1 cm. Pancreas enhances normally. Spleen is normal in size and enhancement. No adrenal nodules. Kidneys are normal in size and enhancement, without hydronephrosis. The previously seen right-sided hydronephrosis has resolved. Peritoneum and bowel: Cystic and solid peritoneal nodules are seen, which are clearly progressed compared to the prior examination. For example just lateral to the spleen, there is a 2.7 x 1.2 cm nodule which was not present on the prior CT. Along the midline anteriorly there is a cystic collection with a thickened border that measures 3.4 x 1.9 cm in greatest axial dimension, with a craniocaudal extent of 7 cm. Along the left anterior aspect of the peritoneum, there is a focal nodule seen, which appears to be growing into the abdominal wall itself measuring 2.6 x 1.6 cm in greatest axial dimension, with a craniocaudal extent of 3.1 cm. Within the pelvis, cystic and solid nodules are seen, with the largest on the right measuring 4.2 x 3 cm in greatest axial dimension, which is attributed to patient's primary mass. The largest cystic and solid nodule on the left measures 4.3 x 3.5 cm in greatest axial dimension. Within the anterior left pelvis, there is an additional rim enhancing nodule measuring 2.3 x 2 cm in greatest axial dimension. A left-sided peritoneal drainage catheter can be seen. The omentum demonstrates an irregular nodular hypervascular appearance. Generalized dilatation of small bowel loops can be seen. No transition point is seen. No significant colonic abnormality is seen. Nodes and vessels: No retroperitoneal or mesenteric adenopathy. Aorta and inferior vena cava are normal in caliber. Miscellaneous: No ventral hernias. PELVIS: Genitourinary: Bladder wall thickness is normal. Miscellaneous: No inguinal hernias or adenopathy. Bones: No suspicious bony lesions. No vertebral body compression fractures. Focal L5-S1 degenerative change is seen. Milder degenerative changes are seen elsewhere. IMPRESSION: Worsening of peritoneal carcinomatosis, with numerous cystic and solid enhancing nodules seen. Omental caking can be seen. Dilated loops of bowel are seen, which are attributed to ileus. No kade obstruction is seen. There is a left-sided peritoneal drainage catheter seen. The previously seen right hydronephrosis has resolved. Trace right-sided pleural effusion. Prominent gallbladder with minimal wall thickening. Mild biliary dilatation is seen. Incidental note is made of: Likely atelectasis seen at both lung bases. Likely subcentimeter left liver cyst Focal L5-S1 change Dictated by: Adriel Ozuna M.D. on 02/17/2020 at 8:38 Approved by: Adriel Ozuna M.D. on 02/17/2020 at 8:50
== END ==
PROVIDERS: Family Provider Family Medicine; PCP Family Medicine; Referring Provider Obstetrics & Gynecology Gynecologic Oncology; Visit Provider Obstetrics & Gynecology Gynecologic Oncology
DX: C78.6 Secondary malignant neoplasm of retroperitoneum and peritoneum (principal); B99.9 Unspecified infectious disease; D72.829 Elevated white blood cell count, unspecified; K83.8 Other specified diseases of biliary tract; M47.817 Spondylosis without myelopathy or radiculopathy, lumbosacral region
CPT/HCPCS: 74177; Q9967

== ENCOUNTER → 2020-07-04 14:44 | Outpatient (CLI) | payer OTHER, SELFPAY | PROVIDERS: Family Provider Family Medicine; PCP Family Medicine; Visit Provider Physician Assistant | DX: R30.0 Dysuria (principal) | CPT/HCPCS: 87086 ==

== ENCOUNTER → 2020-09-10 11:45 | Outpatient (CLI) | payer OTHER, SELFPAY ==
[2020-09-10 13:11] LABS: COVID19 -Nasal RAPID Negative (Negative)
== END ==
PROVIDERS: PCP Family Medicine; Visit Provider Specialist
DX: Z11.59 Encounter for screening for other viral diseases (principal)
CPT/HCPCS: 87635; C9803

== ENCOUNTER 2020-09-11 06:48 | Day surgery (SDC) | payer OTHER, SELFPAY ==
--- NOTE | 2020-09-11 | PATH_ITS ---
[facility] Accession Number: [id number] . 01 Material submitted: . colon - COLON BIOPSY AT 15CM . 02 Diagnosis: Colon, 15 CM, Biopsy: Consistent with hyperplastic polyp in one fragment. Two fragments of colonic mucosa with no diagnostic abnormality. Negative for active, chronic, and microscopic colitis. Negative for dysplasia and malignancy. [facility] 09/14/2020 1341 Local . 02 Electronically signed: . Purnima Nazario MD, Pathologist NPI- [id number] . 01 Gross description: . COLON BIOPSY AT 15CM: Received in formalin are 3 fragment(s) of munguia, soft tissue measuring 0.6 x 0.3 x 0.2 cm to 0.3 x 0.3 x 0.2 cm submitted entirely in 1 cassette(s) /QBJ 09/12/2020 0854 Local . 02 Pathologist provided ICD-10: K63.5 . 02 CPT . 806795 Performed at: 01 [facility] [address], [place], [place] [id number] MD Felice Lugo MD Phone: [phone] Performed at: 02 [facility] [address] [place], [place] [id number] MD Purnima Nazario MD Phone: [phone]
[2020-09-11 07:21] VITALS: BP 124/79; PULSE 73; RESP 14; TEMP 37.4; O2SAT 100; BMI 18.3
[2020-09-11] MEDS: LACTATED RINGERS 1,000 ML 200 ML IV (07:28)
--- NOTE | 2020-09-11 08:35 | PM.PREOP ---
Pre-operative Note COVID-19 COVID-19 status: Negative Result date/Date tested (Pos, Neg/Pending): 09/08/20 Interval Note History & Physical reviewed/Exam performed by Physician: Yes Changes to H&P: No ASA Class (for procedural sedation): II
[2020-09-11] MEDS: fentaNYL 250 MCG/5 ML INJ IV (08:38)
[2020-09-11] MEDS: MIDAZOLAM 5 MG/5 ML VIAL IV (09:04)
[2020-09-11 09:26] VITALS: BP 104/74; PULSE 69; RESP 12; TEMP 36.9; O2SAT 98
[2020-09-11 09:31] VITALS: BP 109/65; PULSE 71; RESP 12; O2SAT 98
--- NOTE | 2020-09-11 09:31 | PM.OP.ENDO ---
Operative Date/Time/Diagnoses Date of procedure: 09/11/20 Time of procedure: 09:31 Pre-op diagnosis: Rising CEA. Post-op diagnosis: same (One small polyp. Otherwise normal colonoscopy to the cecum.) Procedure & Clinicians Study performed: Colonoscopy with cold biopsy Same procedure as scheduled: Yes Indications: Patient with a complicated history with a rising CEA and an exploration thought to be consistent with carcinomatosis but all the biopsies were consistent with inflammatory changes. They were unsuccessful during the acute phase of this process in completing a colonoscopy and I was asked to do that now that the inflammation has completely subsided. Surgeon: Raymond Koroma Procedure Notes SCOAP/Timeout: Performed Procedure in detail: The patient was placed in the left lateral decubitus position and underwent IV sedation directed by the surgeon consisting of fentanyl and Versed. Digital exam was unremarkable. The scope was inserted and advanced through the rectum into the sigmoid, descending, transverse, and ascending colon. There was 1 tiny polyp noted distally which is sided removed on the way out. There was an area of stricture at about 30-40 cm that was very difficult to negotiate that once I a was able to do so the remainder of the colon was unremarkable.. The cecum was reached identified by the ileocecal valve and the appendiceal opening. The scope was gradually brought out. The only Polyp found at 15 cm from the anal verge. The only narrowing was in the sigmoid. The scope ultimately was retroflexed in the rectum. The appearance was normal. The scope was removed and the patient tolerated the procedure well. The prep was very good. Scope withdrawal time: 20 minutes(22 total) Sedation minutes: 46 Findings: stricture (Sigmoid) Specimen(s): other (Small polyp) Complications: none Post-procedure Plan for aftercare: Follow-up with primary providers. Follow up: as needed Disposition: PACU
[2020-09-11 09:36] VITALS: BP 101/65; PULSE 67; RESP 12; O2SAT 98
[2020-09-11 09:41] VITALS: BP 102/65; PULSE 66; RESP 12; O2SAT 96
[2020-09-11 09:51] VITALS: BP 105/65; PULSE 65; RESP 12; TEMP 36.9; O2SAT 96
--- NOTE | 2020-09-11 10:17 | SUR.PHASEII ---
1003 assumed care to discharge patient. RN stated that she had just taken VS. Pt awake, talking, denies comfortable. 1013 To home; no questions concerns. Drowsy, stable on feet.
== END 2020-09-11 10:13 | disposition home or self-care (01) ==
PROVIDERS: PCP Family Medicine; Referring Provider Family Medicine; Visit Provider Specialist
PROC: 0DJD8ZZ Inspection of Lower Intestinal Tract, Via Natural or Artificial Opening Endoscopic (ICD-10-PCS; CPT 45378; principal; 2020-09-11 07:45)
DX: K63.5 Polyp of colon (principal); R97.0 Elevated carcinoembryonic antigen [CEA]; F17.210 Nicotine dependence, cigarettes, uncomplicated
CPT/HCPCS: 45380; 99152; 99153; J2250; J3010

== ENCOUNTER → 2020-09-12 11:49 | Outpatient (CLI) | payer OTHER, SELFPAY ==
--- NOTE | 2020-09-12 | DI.MG.S_ITS ---
BILATERAL DIGITAL SCREENING MAMMOGRAM 3D/2D WITH CAD: 09/12/2020 CLINICAL: Routine screening. Baseline exam. No prior exams were available for comparison. The tissue of both breasts is heterogeneously dense. This may lower the sensitivity of mammography. Current study was also evaluated with a Computer Aided Detection (CAD) system. There are grouped punctate calcifications in the right breast at 11 o'clock posterior depth. No other significant masses, calcifications, or other findings are seen in either breast. IMPRESSION: INCOMPLETE: NEEDS ADDITIONAL IMAGING EVALUATION The grouped punctate calcifications in the right breast are indeterminate. Mediolateral and magnification views are recommended. This exam was interpreted at Station ID: [id number]. NOTE: For mammograms, a report in lay terms will be sent to the patient. Approximately 15% of breast malignancies will not be visualized mammographically. In the management of a palpable breast mass, a negative mammogram must not discourage biopsy of a clinically suspicious lesion. Electronically Signed By: Vu gautam/estella:09/12/2020 12:18:56 letter sent: Additional Imaging Needed ACR BI-RADS Category 0: Incomplete [id number]
== END ==
PROVIDERS: PCP Family Medicine; Referring Provider Family Medicine; Visit Provider Family Medicine
DX: R92.8 Other abnormal and inconclusive findings on diagnostic imaging of breast (principal)
CPT/HCPCS: 77063; 77067

== ENCOUNTER → 2020-10-08 08:44 | Outpatient (CLI) | payer OTHER, SELFPAY ==
--- NOTE | 2020-10-08 08:45 | DI.MG.S_ITS ---
UNILATERAL RIGHT DIGITAL DIAGNOSTIC MAMMOGRAM 3D/2D WITH ADDITIONAL VIEWS: 10/08/2020 CLINICAL: Additional evaluation requested from prior study. Comparison is made to exam dated: 09/12/2020 [facility]. The tissue of right breast is heterogeneously dense. This may lower the sensitivity of mammography. There are grouped punctate round calcifications in the right breast at 11 o'clock posterior depth comprised of two small adjacent groups of punctate, round calcifications. No other significant masses or calcifications are seen in the breast. IMPRESSION: PROBABLY BENIGN The grouped punctate round calcifications in the right breast are probably benign. A follow-up right mammogram in 6 months is recommended to demonstrate stability. Findings and recommendations were conveyed to the patient during today's evaluation. This exam was interpreted at Station ID: [id number]. NOTE: For mammograms, a report in lay terms will be sent to the patient. Approximately 15% of breast malignancies will not be visualized mammographically. In the management of a palpable breast mass, a negative mammogram must not discourage biopsy of a clinically suspicious lesion. Electronically Signed By: Jeferson dunn/:10/08/2020 09:13:05 letter sent: Followup Recommended ACR BI-RADS Category 3: Probably benign [id number]
== END ==
PROVIDERS: PCP Family Medicine; Referring Provider Family Medicine; Visit Provider Family Medicine
DX: R92.1 Mammographic calcification found on diagnostic imaging of breast (principal)
CPT/HCPCS: 77065; G0279

== ENCOUNTER → 2021-03-11 14:59 | Outpatient (CLI) | payer OTHER, SELFPAY ==
--- NOTE | 2021-03-11 15:01 | DI.RAD.S_ITS ---
PROCEDURE: XR ACUTE ABDOMEN SERIES INDICATIONS: abdominal pain TECHNIQUE: One view chest and two views of the abdomen were acquired. COMPARISON: None. FINDINGS: Surgical changes and devices: None. Chest: Lungs are clear. Heart size is normal. No pleural effusions. No pneumoperitoneum. Abdomen: Bowel gas pattern is nonspecific. Several small fluid levels are noted. Scattered moderate colonic stool. No suspicious calcifications. Visualized solid organ contours appear normal. Bones: No suspicious bony lesions. IMPRESSION: Nonspecific gas pattern with several small fluid levels. Ileus versus developing partial small bowel obstruction cannot be excluded. Moderate stool suggestive of constipation is noted. Dictated by: Va Contreras M.D. on 03/11/2021 at 16:57 Approved by: Va Contreras M.D. on 03/11/2021 at 16:58
[2021-03-11 16:28] LABS: Add Manual Diff / Slide Review NO; Basophils Absolute Auto 100 /uL (0-100); Basophils Percent Auto 0.9 % (0-2); Eosinophils Absolute Auto 0 /uL (0-450); Eosinophils Percent Auto 0.5 % (2-4); Hematocrit 35.4 % (36-46); Hemoglobin 11.6 g/dL (12.0-16.0); Lymphocytes Absolute Auto 1800 /uL (1100-4500); Lymphocytes Percent Auto 26.8 % (25-40); Mean Corpuscular HGB Conc 32.7 % (30-36); Mean Corpuscular Hemoglobin 35.1 PG (26-34); Mean Corpuscular Volume 107.2 fL (80-100); Monocytes Absolute Auto 800 /uL (0-900); Monocytes Percent Auto 12.4 % (3-14); Neutrophils Absolute Auto 4000 /uL (1500-7000); Neutrophils Percent Auto 59.4 % (50-75); Platelet Count 187 X10^3/uL (150-400); Red Cell Distribution Width 14.2 % (11.6-14.8); White Blood Cell Count 6.7 X10^3/uL (4.5-11.0)
[2021-03-11 16:51] LABS: Alanine Aminotransferase 46 IU/L (<35); Albumin 4.5 g/dL (3.5-5.0); Albumin Globulin Ratio 1.3 (1.0-2.8); Alkaline Phosphatase 95 U/L (38-126); Aspartate Aminotransferase 79 IU/L (14-36); BUN Creatinine Ratio 31.4 (6-22); Bilirubin Total 0.3 mg/dL (0.2-1.3); Blood Urea Nitrogen 11 mg/dL (7-17); Calcium 9.5 mg/dL (8.4-10.2); Carbon Dioxide 25 mmol/L (22-32); Chloride 101 mmol/L (98-107); Estimated Glomerular Filt Rate > 60.0 mL/min (>60); Globulin 3.6 g/dL (1.7-4.1); Glucose 93 mg/dL (70-100); HEMOLYSIS < 15 (0-50); Potassium 3.8 mmol/L (3.4-5.1); Sodium 137 mmol/L (137-145); Total Protein 8.1 g/dL (6.3-8.2)
[2021-03-11 17:34] LABS: Appearance Urine UA CLOUDY; Bilirubin Urine UA NEGATIVE (NEGATIVE); Color Urine UA YELLOW; Glucose Urine UA NEGATIVE (Negative); Ketones Urine UA TRACE (NEGATIVE); Leukocyte Esterase Urine UA 3+ (NEGATIVE); Nitrite Urine UA NEGATIVE (Negative); Occult Blood Urine UA 3+ (Negative); Protein Urine UA 1+ (Negative); Specific Gravity Urine UA 1.025 (1.000-1.035); Urobilinogen Urine UA 0.2 E.U./dL (0.2)
[2021-03-11 17:44] LABS: Bacteria Urine Many (>30); Culture Indicated Urine Specimen Cultured; RBC Urine 10-30/HPF (0-5/HPF); Squamous Epithelial Cell Urine 1-5 /HPF (0-5/HPF); WBC Urine >100/HPF (0-5/HPF)
== END ==
PROVIDERS: PCP Family Medicine; Referring Provider Registered Nurse; Visit Provider Registered Nurse
DX: R10.30 Lower abdominal pain, unspecified (principal); R53.83 Other fatigue; R35.0 Frequency of micturition
CPT/HCPCS: 36415; 74022; 80053; 81003; 81015; 85025; 87086

== ENCOUNTER 2021-09-25 11:07 | Emergency (ER) | payer OTHER, SELFPAY ==
[2021-09-25 11:25] VITALS: BP 111/72; PULSE 76; RESP 14; TEMP 37; O2SAT 100; BMI 19.3
--- NOTE | 2021-09-25 11:29 | DI.RAD.S_ITS ---
PROCEDURE: XR WRIST RT MIN 3V INDICATIONS: wrist pain after fall TECHNIQUE: 3 views of the wrist were acquired. COMPARISON: None. FINDINGS: Bones: No fractures or dislocations. No suspicious bony lesions. Wrist joint osteoarthritic changes are seen particularly involving 1st CMC joint. Scaphoid view: No gross abnormality is seen in the scaphoid. Soft tissues: No suspicious soft tissue calcifications. IMPRESSION: No gross acute right wrist fracture or dislocation. Wrist joint osteoarthritis. Dictated by: Myles Jimenez M.D. on 09/25/2021 at 12:08 Approved by: Myles Jimenez M.D. on 09/25/2021 at 12:08
--- NOTE | 2021-09-25 12:20 | ED_ITS ---
HPI - Extremity Injury (Upper) General Chief Complaint: Extremity Injury, Upper Stated Complaint: Fall hurt right forearm and wrist Time Seen by Provider: 09/25/21 12:20 Source: patient Mode of arrival: Ambulatory Limitations: no limitations History of Present Illness HPI narrative: This is a 51-year-old female comes to the emergency department with complaint of slip and fall on her right forearm with some arm extended. Patient states she has pain at the wrist on the right. Patient denies any numbness or tingling. No weakness. She has pain with movement. Patient denies any other injuries. No major medical issues. No daily medications. She tried some ibuprofen which was minimally helpful. She does have some bruising and swelling of the wrist as well. Patient does smoke. She does have a primary care she can follow with Dr. Gamboa. Related Data Home Medications Medication Instructions Recorded Confirmed biotin 2,500 mcg capsule 5,000 mcg PO DAILY #0 06/13/17 10/24/20 ascorbic acid (vitamin C) 500 mg 250 mg PO DAILY 08/23/20 10/24/20 tablet cholecalciferol (vitamin D3) 10 10 mcg PO DAILY 08/23/20 10/24/20 mcg (400 unit) capsule multivitamin 1 tab PO DAILY 08/23/20 10/24/20 Allergies Allergy/AdvReac Type Severity Reaction Status Date / Time No Known Drug Allergies Allergy Verified 09/25/21 11:30 Review of Systems Review of Systems ROS Unobtainable: All systems reviewed & are unremarkable except as noted in HPI and below Patient History Medical History Abnormal mammogram of right breast Acute constipation Anxiety Bronchitis Colon polyp Constipation Depression Diarrhea Excessive cerumen in ear canal History of constipation History of UTI Hx of intestinal obstruction Low blood sugar Ovarian cancer Pelvic mass Urinary frequency Surgical History History of dental surgery (~1976) S/P biopsy Family History Father Diabetes mellitus Hypertension Prostate cancer History of blood clots Mother Lung cancer Sister Lymphoma Heart disease Grandfather Diabetes mellitus Grandmother Asthma Grandfather Heart attack Grandmother No problems noted. Social History marital status: unmarried,living together household members: significant other occupational status: employed Smoking Status: Current every day smoker alcohol intake: current substance use type: does not use Smoking Status: Current every day smoker alcohol intake frequency: 3 or more drinks per day Substance Use Type: does not use Exam Narrative Exam Narrative: GENERAL: Alert and oriented x three, female in mild distress. HEENT: Head normocephalic, atraumatic, EOMI, pupils reactive, face symmetric, moist mucous membranes NECK: Supple, full range of motion EXTREMITIES: Normal range of motion, patient does have some swelling and ecchymosis of the distal wrist. She has tenderness over the right proximal 1st metatarsal. Patient has good range of motion of all 5 fingers but is uncomfortable. Cap refills less than 2 seconds in all 5 fingers. She has normal sensation throughout all 5 fingers and hand. Ecchymosis is not as ap preciable over the dorsum or palmar side of the hand. Neurovascularly intact. NEUROLOGICAL: Cranial nerves II through XII grossly intact. Moving all extremities SKIN: Warm, dry, no petechiae, no rashes or lesions. Initial Vital Signs Initial Vital Signs: Vital Signs Temperature 98.6 F 09/25/21 11:25 Pulse Rate 76 09/25/21 11:25 Respiratory Rate 14 09/25/21 11:25 Blood Pressure 111/72 09/25/21 11:25 Pulse Oximetry 100 09/25/21 11:25 Course Orders Ordered: ED Orders 09/25/21 11:29 XR wrist RT min 3V Stat Discontinued Medications Acetaminophen (Acetaminophen 325 Mg Tablet) 975 mg PO NOW ONE Stop: 09/25/21 12:56 Last Admin: 09/25/21 13:09 Dose: 975 mg Documented by: NINA Vital Signs Vital signs: Vital Signs - 8 hr 09/25/21 11:25 09/25/21 13:16 Temperature 98.6 F Pulse Rate 76 77 Respiratory Rate 14 18 Blood Pressure 111/72 111/64 Pulse Oximetry 100 98 MDM - Extremity Injury (Upper) Imaging Data Extremity x-ray #1: Radiologist's Impression: [address] [address] XRay Report Signed Patient: Fabian Peterson MR#: [id number] : 1970 Acct:[id number] Age/Sex: 51 / F Date of Service: 09/25/21 Loc: ED Accession Number: [id number] ?? Procedure: XR wrist RT min 3V Ordering Provider: Jeanne Tran D.O. PROCEDURE:? XR WRIST RT MIN 3V ? INDICATIONS: wrist pain after fall ? TECHNIQUE:? 3 views of the wrist were acquired.? ? COMPARISON:? None. ? FINDINGS:? ? Bones:? No fractures or dislocations.? No suspicious bony lesions.? Wrist joint osteoarthritic changes are seen particularly involving 1st CMC joint. ? Scaphoid view:? No gross abnormality is seen in the scaphoid. ? Soft tissues:? No suspicious soft tissue calcifications.? ? IMPRESSION:? No gross acute right wrist fracture or dislocation.? Wrist joint osteoarthritis. ? ? Dictated by: Myles Jimenez M.D. on 09/25/2021 at 12:08 ? ? Approved by: Myles Jimenez M.D. on 09/25/2021 at 12:08?? MDM Narrative Medical decision making narrative: This is a 51-year-old female who has tenderness over in the 1st metatarsal scaphoid region after a slip and fall. Bruising is more the distal forearm. Patient placed in splint with plan for follow-up and repeat evaluation. Discharge Plan Departure Patient Disposition: Home Clinical Impression: Sprain of right wrist Instructions: DI for Wrist Sprain Activity Restrictions/Additional Instructions: Follow up in the next week for recheck if you have not had resolution of your symptoms. Your x-rays do not show any obvious fracture they can sometimes have small or occult fractures that are not found until repeat imaging 7-10 days later. Call for an appointment. You may use ice to the affected area hourly. You may take Tylenol up to a 1000 mg every 8 hours and/or ibuprofen up to 800 mg every 8 hours as needed. Splint Care: Keep splint clean and dry. Elevated affected body part to decrease swelling. OK to use ice pack on the affected body part. Use for 15-20 minutes each time, for 5-6x per day. If you develop worsening pain, numbness, tingling, discoloration of the affected body part, loosen the splint by loosening the ANAND wrap, and either see your doctor for an urgent re-assessment, or return to the Emergency Department. Return to the Emergency Department for any new or worsening symptoms. Prescriptions: No Action biotin 2,500 MCG capsule 5,000 mcg PO DAILY Qty: 0 0RF cholecalciferol (vitamin D3) 10 mcg (400 unit) capsule 10 mcg PO DAILY 0RF ascorbic acid (vitamin C) 500 mg tablet 250 mg PO DAILY 0RF multivitamin Tablet 1 tab PO DAILY 0RF Referrals: Chi Gamboa, [Primary Care Provider] -
[2021-09-25] MEDS: ACETAMINOPHEN 325 MG TABLET 975 MG PO (13:09)
[2021-09-25 13:16] VITALS: BP 111/64; PULSE 77; RESP 18; O2SAT 98
== END 2021-09-25 13:18 | disposition home or self-care (01) ==
PROVIDERS: Emergency Provider Emergency Medicine; PCP Family Medicine
DX: S63.501A Unspecified sprain of right wrist, initial encounter (principal); W01.0XXA Fall on same level from slipping, tripping and stumbling without subsequent striking against object, initial encounter
CPT/HCPCS: 29280; 73110; 99283

== ENCOUNTER 2022-01-24 02:17 | Emergency (ER) | payer OTHER, SELFPAY ==
[2022-01-24] VITALS (7 sets, daily range): BP systolic 120; BP diastolic 88; PULSE 74–92; RESP 15–26; TEMP 36.6; O2SAT 98–100; BMI 20.1
[2022-01-24 02:32] LABS: Appearance Urine UA CLOUDY; Bilirubin Urine UA NEGATIVE (NEGATIVE); Color Urine UA YELLOW; Glucose Urine UA NEGATIVE (Negative); Ketones Urine UA NEGATIVE (NEGATIVE); Leukocyte Esterase Urine UA 3+ (NEGATIVE); Nitrite Urine UA POSITIVE (Negative); Occult Blood Urine UA 3+ (Negative); Protein Urine UA 3+ (Negative); Specific Gravity Urine UA 1.015 (1.000-1.035); Urobilinogen Urine UA 0.2 E.U./dL (0.2)
--- NOTE | 2022-01-24 02:32 | PC.NURSE ---
He stated the pain was better after iv dilaudid,he statedI've had trouble speaking for a long time.It was noted that he was having some difficulty with forming his words the two times I spoke to him.DR Butler aware of this..
--- NOTE | 2022-01-24 02:33 | DI.CT.S_ITS ---
PROCEDURE: CT KIDNEY URETER BLADDER (KUB) INDICATIONS: Right flank pain TECHNIQUE: Axial sections were acquired from the lung bases to the pubic symphysis. Coronal and sagittal reformats were performed. For radiation dose reduction, the following was used: automated exposure control, adjustment of mA and/or kV according to patient size. COMPARISON: None. FINDINGS: Image quality: Excellent. Lung bases: Unremarkable. Heart: No significant findings. URINARY: Severe right-sided hydronephrosis to the level of the mid to distal right ureter. No obstructing stone identified. No left-sided hydronephrosis. 1 millimeter nonobstructing stone noted in the lower pole of the left kidney. Right perinephric and periureteral stranding is noted which could be due to obstruction versus superimposed infection. Bladder: Normal wall thickness. No stones. ABDOMEN: Liver: Diffuse fatty infiltration of the liver. Gallbladder: Unremarkable. Biliary ducts: Unremarkable. Pancreas: Unremarkable. Spleen: Single punctate calcified granuloma. Adrenal Glands: Unremarkable. Stomach and Bowel: Stomach, small bowel loops, and colon are unremarkable. The appendix is normal. Peritoneum: No abnormal intraperitoneal fluid. No free air. Ventral Wall: No hernia. Abdominal Nodes: No enlarged retroperitoneal or mesenteric lymph nodes. Vessels: Aorta and inferior vena cava are normal in size. PELVIS: Pelvic Organs: There is a 5.5 x 4.4 x 5.4 centimeter right adnexal region cyst. Pelvic Nodes: Unremarkable. Miscellaneous: No inguinal hernias are seen. Bones: Spine degenerative disc disease and facet arthropathy. IMPRESSION: 1. Severe right-sided hydronephrosis to the level of the right mid-distal ureter. No obstructing renal stone identified. Finding could be secondary to benign or malignant stricture. Recommend urology consultation. 2. 1 millimeter nonobstructing left renal stone. 3. Hepatic steatosis. 4. Right perinephric and periureteral stranding which could be due to obstruction versus superimposed urinary tract infection. 5. 5.5 x 4.4 x 5.4 centimeter right adnexal region cyst. Recommend pelvic ultrasound for additional evaluation. Dictated by: Kalina Huber MD, PhD on 01/24/2022 at 7:41 Approved by: Kalina Huber MD, PhD on 01/24/2022 at 7:46
--- NOTE | 2022-01-24 02:33 | ED.GENADULT ---
HPI - General Adult General Chief complaint: Abdominal Pain Stated complaint: Severe lower pain right side Time Seen by Provider: 01/24/22 02:27 History of Present Illness HPI narrative: 51-year-old woman with a past medical history significant for a complex right ovarian mass that ended up being an infection treated with percutaneous drainage and extensive antibiotics presents with complaints of right back right pelvic pain and notes that she has symptoms consistent with a UTI that had been progressing over the last 3-4 days. She notes that she began having frequency 3-4 days ago in dysuria 2-3 days ago. She denies any fevers or vaginal discharge. She notes no chest pain, palpitations, cough, abdominal pain. She describes the majority of her pain in her right low back but actually points to her flank area. She has not had hematuria and has no history of kidney stones. Related Data Home Medications Medication Instructions Recorded Confirmed biotin 2,500 mcg capsule 5,000 mcg PO DAILY #0 06/13/17 10/24/20 ascorbic acid (vitamin C) 500 mg 250 mg PO DAILY 08/23/20 10/24/20 tablet cholecalciferol (vitamin D3) 10 10 mcg PO DAILY 08/23/20 10/24/20 mcg (400 unit) capsule multivitamin 1 tab PO DAILY 08/23/20 10/24/20 Previous Rx's Medication Instructions Recorded levofloxacin 750 mg tablet 750 mg PO DAILY #7 tab 01/24/22 oxycodone-acetaminophen 5 mg-325 1 tab PO Q6H PRN #14 tab 01/24/22 mg tablet Allergies Allergy/AdvReac Type Severity Reaction Status Date / Time No Known Drug Allergies Allergy Verified 09/25/21 11:30 Review of Systems Review of Systems Narrative: Remainder of complete review of systems is otherwise unremarkable except for that included in the HPI. Patient History Medical History Abnormal mammogram of right breast Anxiety Colon polyp Depression Diarrhea History of constipation History of UTI Hx of intestinal obstruction Low blood sugar Pelvic mass Urinary frequency Surgical History History of dental surgery (~1976) S/P biopsy Family History Father Diabetes mellitus Hypertension Prostate cancer History of blood clots Mother Lung cancer Sister Lymphoma Heart disease Grandfather Diabetes mellitus Grandmother Asthma Grandfather Heart attack Grandmother No problems noted. Social History marital status: unmarried,living together household members: significant other occupational status: employed Smoking Status: Current every day smoker alcohol intake: current substance use type: does not use Smoking Status: Current every day smoker alcohol intake frequency: 3 or more drinks per day Substance Use Type: does not use Exam Initial Vital Signs Initial Vital Signs: Vital Signs Temperature 97.8 F 01/24/22 02:40 Pulse Rate 74 01/24/22 02:40 Respiratory Rate 26 H 01/24/22 02:40 Blood Pressure 120/88 01/24/22 02:40 Pulse Oximetry 98 01/24/22 02:40 General: Healthy appearing, in moderate amount of right flank pain. Able to give a complete and coherent history. Well-nourished well-developed HEENT: Moist mucous membranes, normal sclera with reactive pupils, Respiratory: Lungs are clear to auscultation, no wheezing no rales no rhonchi. Full and symmetrical air movement Cardiac: Regular rate and rhythm no murmurs no bruits Abdomen: Soft, nontender, good bowel tones, right flank pain Spine: No tenderness along thoracic or lumbar spine and no paraspinous muscle spasm appreciated Skin: Warm and dry, no rashes Neurologic: Grossly neurologically intact with no obvious asymmetries or abnormalities Extremities: No trauma, well perfused Psych: Cooperative, appropriate insight and affect Course Orders Ordered: ED Orders 01/24/22 02:20 Urinalysis and Microscopic Stat Urine Culture Stat 01/24/22 02:33 CT kidney ureter bladder (KUB) Stat 01/24/22 02:34 Complete Blood Count AUTO DIFF Stat Comprehensive Metabolic Panel Stat 01/24/22 03:50 COVID19 -Nasal swab/Pre-Proc Stat Hydromorphone HCl (Hydromorphone 0.5 Mg Inj) 0.5 mg IV Q15MIN PRN PRN Reason: Pain, Discontinued Medications Sodium Chloride (Normal Saline 0.9%) 1,000 mls @ 1,000 mls/hr IV BOLUS ONE Stop: 01/24/22 03:31 Last Infusion: 01/24/22 04:08 Dose: Infused Documented by: Ceftriaxone Sodium 2,000 mg/ (Sodium Chloride) 100 mls @ 200 mls/hr IV NOW ONE Stop: 01/24/22 03:47 Last Admin: 01/24/22 04:28 Dose: 200 mls/hr Documented by: Ketorolac Tromethamine (Ketorolac 30 Mg/Ml Vial) 15 mg IV NOW ONE Stop: 01/24/22 02:33 Last Admin: 01/24/22 02:58 Dose: 15 mg Documented by: Ondansetron HCl (Ondansetron 4 Mg/2 Ml Inj) 4 mg IV NOW ONE Stop: 01/24/22 02:33 Last Admin: 01/24/22 02:58 Dose: 4 mg Documented by: Vital Signs Vital signs: Vital Signs - 8 hr 01/24/22 02:40 Temperature 97.8 F Pulse Rate 74 Respiratory Rate 26 H Blood Pressure 120/88 Pulse Oximetry 98 Medical Decision Making Lab Data Result diagrams: 01/24/22 02:34 01/24/22 02:34 Labs: Lab Results 01/24/22 01/24/22 01/24/22 Range/Units 02:20 02:34 02:34 WBC 9.8 (4.5-11.0) X10^3/uL RBC 3.58 L (4.0-5.2) X10^6/uL Hgb 12.7 (12.0-16.0) g/dL Hct 38.1 (36-46) % MCV 106.4 H (80-100) fL MCH 35.6 H (26-34) PG MCHC 33.4 (30-36) % RDW 14.2 (11.6-14.8) % Plt Count 150 (150-400) X10^3/uL Neut % (Auto) 59.1 (50-75) % Lymph % (Auto) 27.8 (25-40) % Dickens % (Auto) 9.6 (3-14) % Eos % (Auto) 2.1 (2-4) % Baso % (Auto) 1.4 (0-2) % Neut # (Auto) 5800 (8994-6794) /uL Lymph # (Auto) 2700 (5993-8800) /uL Dickens # (Auto) 900 (0-900) /uL Eos # (Auto) 200 (0-450) /uL Baso # (Auto) 100 (0-100) /uL Sodium 145 (137-145) mmol/L Potassium 3.8 (3.4-5.1) mmol/L Chloride 108 H (98-107) mmol/L Carbon Dioxide 22 (22-32) mmol/L BUN 7 (7-17) mg/dL Creatinine 0.44 L (0.52-1.04) mg/dL Estimated GFR > 60.0 (>60) mL/min BUN/Creatinine Ratio 15.9 (6-22) Glucose 123 H (70-100) mg/dL Calcium 9.2 (8.4-10.2) mg/dL Total Bilirubin 0.6 (0.2-1.3) mg/dL AST 88 H (14-36) IU/L ALT 69 H (<35) IU/L Alkaline Phosphatase 90 (38-126) U/L Total Protein 8.5 H (6.3-8.2) g/dL Albumin 4.8 (3.5-5.0) g/dL Globulin 3.7 (1.7-4.1) g/dL Albumin/Globulin Ratio 1.3 (1.0-2.8) Urine Color Yellow Urine Appearance Cloudy Urine pH 7.0 (4.5-8.0) Ur Specific Jackson 1.015 (1.000-1.035) Urine Protein 3+ H (Negative) Urine Glucose (UA) Negative (Negative) g/dL Urine Ketones Negative (NEGATIVE) Urine Occult Blood 3+ H (Negative) Urine Nitrate Positive H (Negative) Urine Bilirubin Negative (NEGATIVE) Urine Urobilinogen 0.2 (0.2) E.U./dL Ur Leukocyte Esterase 3+ H (NEGATIVE) Urine RBC 10-30/hpf H (0-5/HPF) Urine WBC >100/hpf H (0-5/HPF) Ur Squamous Epith Cells 1-5 /hpf (0-5/HPF) Ur Transition Epith Cell 1-5/hpf (0-5/HPF) Urine Bacteria Many (>30) H (None) Ur Culture Indicated? Specimen cultured SARS-CoV-2 (PCR) (Negative) 01/24/22 Range/Units 03:50 WBC (4.5-11.0) X10^3/uL RBC (4.0-5.2) X10^6/uL Hgb (12.0-16.0) g/dL Hct (36-46) % MCV (80-100) fL MCH (26-34) PG MCHC (30-36) % RDW (11.6-14.8) % Plt Count (150-400) X10^3/uL Neut % (Auto) (50-75) % Lymph % (Auto) (25-40) % Dickens % (Auto) (3-14) % Eos % (Auto) (2-4) % Baso % (Auto) (0-2) % Neut # (Auto) (8596-6661) /uL Lymph # (Auto) (8759-0260) /uL Dickens # (Auto) (0-900) /uL Eos # (Auto) (0-450) /uL Baso # (Auto) (0-100) /uL Sodium (137-145) mmol/L Potassium (3.4-5.1) mmol/L Chloride (98-107) mmol/L Carbon Dioxide (22-32) mmol/L BUN (7-17) mg/dL Creatinine (0.52-1.04) mg/dL Estimated GFR (>60) mL/min BUN/Creatinine Ratio (6-22) Glucose (70-100) mg/dL Calcium (8.4-10.2) mg/dL Total Bilirubin (0.2-1.3) mg/dL AST (14-36) IU/L ALT (<35) IU/L Alkaline Phosphatase (38-126) U/L Total Protein (6.3-8.2) g/dL Albumin (3.5-5.0) g/dL Globulin (1.7-4.1) g/dL Albumin/Globulin Ratio (1.0-2.8) Urine Color Urine Appearance Urine pH (4.5-8.0) Ur Specific Jackson (1.000-1.035) Urine Protein (Negative) Urine Glucose (UA) (Negative) g/dL Urine Ketones (NEGATIVE) Urine Occult Blood (Negative) Urine Nitrate (Negative) Urine Bilirubin (NEGATIVE) Urine Urobilinogen (0.2) E.U./dL Ur Leukocyte Esterase (NEGATIVE) Urine RBC (0-5/HPF) Urine WBC (0-5/HPF) Ur Squamous Epith Cells (0-5/HPF) Ur Transition Epith Cell (0-5/HPF) Urine Bacteria (None) Ur Culture Indicated? SARS-CoV-2 (PCR) Negative (Negative) Imaging Data CT scan - abdomen/pelvis: Radiologist's Impression: Severe right hydronephrosis extending to the mid upper pelvis. No identified urinary tract stone. Ureteric stricture or neoplasm is within the differential. The distal right ureter is not distended. Right perinephric fat stranding.Consultation advised. Right adnexal cyst likely ovarian in origin. Pelvic ultrasound can further characterize. Hepatic steatosis with hepatomegaly. MDM Narrative Medical decision making narrative: Further clarification on the right ovarian cyst issues. In November of 2019 she reportedly had an elevated CEA. She was admitted to [facility] January of 2020 had multiple biopsies of the complex right cyst was eventually told it was not cancer infectious Disease was involved she had a percutaneous drain placed into the cyst that remained until January of 2020. She received 3 weeks of IV antibiotics and has not had additional follow-up or ultrasounds since. CT scan today shows a right adnexal cystic structure 5 x 4.3 x 5.8 cm. The right ureter extends posterior to the adnexal cystic structure with severe right hydronephrosis extending to the mid upper pelvis no identifiable urinary tract stone. Ureteral stricture or neoplasm are both within the differential. Ceftriaxone is started given the red blood cells, white blood cells, leukocyte esterase, nitrate and many bacteria found on her urine sample with concern for an obstructed proximal right ureter and proximal right hydronephrosis. Pain is controlled at this point with toradol. Will talk to Urology regarding recommendations. 430am Discussed with Dr Gordon, Urology . He agrees with antibiotics and feels that it is safe to discharge her home given that there is no sign of sepsis, acute pyelo or dramatically elevated white blood cell count. She clearly will need to remain on antibiotics. To that end will give her prescription for 7 days of levofloxacin. The urology office will contact the patient to set up an appointment for either later today or Thursday with the anticipation of ureteral stenting and/or percutaneous nephrostomy tube placement. All this is reviewed with the patient who verbalizes understanding. Dr. Gordon left of phone number, which is the kidney stone center which is where he will be today should there be problems, complications or for some reason the office is not able to contact the patient. She will be discharged home Discharge Plan Departure Patient Disposition: Home Clinical Impression: UTI (urinary tract infection), Extrinsic ureteral obstruction, Hydronephrosis, Ovarian cyst Instructions: Hydronephrosis -- Adult, DI for Urinary Tract Infection (UTI), DI for Ovarian Cyst Activity Restrictions/Additional Instructions: Thank you for coming in today You have couple of issues that need to be further addressed 1. You have a urinary tract infection. You were given a dose of ceftriaxone in the emergency department and will need to complete 7 days of levofloxacin, a fluoroquinolone antibiotic. You do not have any signs of overwhelming infection or sepsis and your kidney function is normal. 2. Your right ureter, the tube that connects the kidney to the bladder, is blocked in the middle. It is unclear what is blocking it. Your urine is backing up into your kidney and that is why your having so much pain on the right side. This needs to be fixed sooner rather than later. You will be receiving a phone call from the [facility] urology office with instructions to come down to the [facility] clinic possibly later today and if not then Thursday for an outpatient procedure to help that kidney drain. From there, the urologist will help direct the remainder of your workup 3. You have a recurrent right ovarian/adnexal cyst. I am not sure if this is related to the obstruction with the ureter or if this is an unrelated issue that actually is not a significant problem but will need follow-up. Using 400 mg of ibuprofen (2 [id number]-[id number]-lmlultx pills) and 1 Tylenol every 6 hours can be very helpful in controlling pain. For severe pain you can use to ibuprofen and 1 Percocet. Prescriptions for antibiotics and pain medication or electronically transmitted to [facility]. If you do not receive a call from the urology office by mid day, you can call [phone] and let them know that you are in the emergency department, the doctor spoke with Dr. Gordon and your supposed to have an appointment set up and were expecting a phone call from them. If you have further issues or concerns, if you find that you are having severe fevers, increasing pain or new new findings please return to the ER Prescriptions: New levofloxacin 750 mg tablet 750 mg PO DAILY Qty: 7 0RF oxycodone-acetaminophen 5-325 mg tablet 1 tab PO Q6H PRN (Reason: pain) Qty: 14 0RF No Action biotin 2,500 MCG capsule 5,000 mcg PO DAILY Qty: 0 0RF cholecalciferol (vitamin D3) 10 mcg (400 unit) capsule 10 mcg PO DAILY 0RF ascorbic acid (vitamin C) 500 mg tablet 250 mg PO DAILY 0RF multivitamin Tablet 1 tab PO DAILY 0RF Referrals: Chi Gamboa, [Primary Care Provider] -
[2022-01-24 02:41] LABS: RBC Urine 10-30/HPF (0-5/HPF); Squamous Epithelial Cell Urine 1-5 /HPF (0-5/HPF); Transitional Epi Cells Urine 1-5/HPF (0-5/HPF); WBC Urine >100/HPF (0-5/HPF)
[2022-01-24 02:42] LABS: Bacteria Urine Many (>30); Culture Indicated Urine Specimen Cultured
[2022-01-24 02:46] LABS: Add Manual Diff / Slide Review NO; Basophils Absolute Auto 100 /uL (0-100); Basophils Percent Auto 1.4 % (0-2); Eosinophils Absolute Auto 200 /uL (0-450); Eosinophils Percent Auto 2.1 % (2-4); Hematocrit 38.1 % (36-46); Hemoglobin 12.7 g/dL (12.0-16.0); Lymphocytes Absolute Auto 2700 /uL (1100-4500); Lymphocytes Percent Auto 27.8 % (25-40); Mean Corpuscular HGB Conc 33.4 % (30-36); Mean Corpuscular Hemoglobin 35.6 PG (26-34); Mean Corpuscular Volume 106.4 fL (80-100); Monocytes Absolute Auto 900 /uL (0-900); Monocytes Percent Auto 9.6 % (3-14); Neutrophils Absolute Auto 5800 /uL (1500-7000); Neutrophils Percent Auto 59.1 % (50-75); Platelet Count 150 X10^3/uL (150-400); Red Blood Cell Count 3.58 X10^6/uL (4.0-5.2); Red Cell Distribution Width 14.2 % (11.6-14.8); White Blood Cell Count 9.8 X10^3/uL (4.5-11.0)
[2022-01-24 02:53] LABS: Alanine Aminotransferase 69 IU/L (<35); Albumin 4.8 g/dL (3.5-5.0); Albumin Globulin Ratio 1.3 (1.0-2.8); Alkaline Phosphatase 90 U/L (38-126); Aspartate Aminotransferase 88 IU/L (14-36); BUN Creatinine Ratio 15.9 (6-22); Bilirubin Total 0.6 mg/dL (0.2-1.3); Blood Urea Nitrogen 7 mg/dL (7-17); Calcium 9.2 mg/dL (8.4-10.2); Carbon Dioxide 22 mmol/L (22-32); Chloride 108 mmol/L (98-107); Estimated Glomerular Filt Rate > 60.0 mL/min (>60); Globulin 3.7 g/dL (1.7-4.1); Glucose 123 mg/dL (70-100); HEMOLYSIS < 15 (0-50); Potassium 3.8 mmol/L (3.4-5.1); Sodium 145 mmol/L (137-145); Total Protein 8.5 g/dL (6.3-8.2)
[2022-01-24] MEDS: SODIUM CHLORIDE 0.9% 1,000 ML 1000 ML IV (02:57)
[2022-01-24] MEDS: ONDANSETRON 4 MG/2 ML INJ IV (02:58)
[2022-01-24] MEDS: KETOROLAC 30 MG/ML VIAL 15 MG IV (02:58)
[2022-01-24 04:16] LABS: COVID19 -Nasal RAPID Negative (Negative)
[2022-01-24] MEDS: cefTRIAXone 2,000 MG in SODIUM CHLORIDE 0.9% 100 ML 200 ML IV (04:28)
== END 2022-01-24 05:12 | disposition home or self-care (01) ==
PROVIDERS: Emergency Provider Emergency Medicine; PCP Family Medicine
DX: N39.0 Urinary tract infection, site not specified (principal); N13.1 Hydronephrosis with ureteral stricture, not elsewhere classified; N83.201 Unspecified ovarian cyst, right side; F17.200 Nicotine dependence, unspecified, uncomplicated; Z20.822 Contact with and (suspected) exposure to COVID-19
CPT/HCPCS: 74176; 80053; 81001; 85025; 87077; 87086; 87186; 87635; 96361; 96365; 96375; 99283; 99284; C9803; J0696; J1885; J2405

== ENCOUNTER → 2022-05-29 08:22 | Outpatient (CLI) | payer OTHER, SELFPAY ==
[2022-05-29 09:26] LABS: Appearance Urine UA SL CLOUDY; Bilirubin Urine UA NEGATIVE (NEGATIVE); Color Urine UA YELLOW; Glucose Urine UA NEGATIVE (Negative); Ketones Urine UA 1+ (NEGATIVE); Leukocyte Esterase Urine UA 2+ (NEGATIVE); Nitrite Urine UA NEGATIVE (Negative); Occult Blood Urine UA TRACE-INTACT (Negative); Protein Urine UA TRACE (Negative); Urobilinogen Urine UA 0.2 E.U./dL (0.2)
[2022-05-29 09:29] LABS: pH Urine UA 5.5 (4.5-8.0)
[2022-05-29 09:32] LABS: Bacteria Urine Many (>30); Culture Indicated Urine Cult Not Indicated; RBC Urine 10-30/HPF (0-5/HPF); Squamous Epithelial Cell Urine 5-10 /HPF (0-5/HPF); WBC Urine 30-100/HPF (0-5/HPF)
== END ==
PROVIDERS: PCP Family Medicine; Referring Provider Urology; Visit Provider Urology
DX: N13.39 Other hydronephrosis (principal)
CPT/HCPCS: 81001

== ENCOUNTER → 2022-06-04 15:38 | Outpatient (CLI) | payer OTHER, SELFPAY | PROVIDERS: PCP Family Medicine; Referring Provider Urology; Visit Provider Urology | DX: N13.30 Unspecified hydronephrosis (principal) | CPT/HCPCS: 87086 ==

== ENCOUNTER → 2023-03-10 10:02 | Outpatient (CLI) | payer OTHER, SELFPAY ==
--- NOTE | 2023-03-10 10:03 | DI.US.S_ITS ---
PROCEDURE: US PELVIC COMPLETE INDICATIONS: HISTORY RIGHT ADNEXAL CYST TECHNIQUE: Real-time scanning was performed of the pelvic organs, with image documentation. Additional endovaginal scanning was necessary due to incomplete visualization of the adnexal and endometrial structures by transabdominal scanning. COMPARISON: [facility], , US PELVIC COMPLETE, 12/14/2019, 13:54. FINDINGS: Uterus: 5.9 x 3 x 4.5 centimeters. The endometrium is 1-2 millimeters. Ovaries: Right ovary is not seen. Left ovarian volume is 1 cc, poorly seen. Other: No pathologic free fluid. IMPRESSION: The right ovary is not seen. Nonenlarged left ovary. No pathologic endometrial thickening. Consider CT or MR follow-up for prior imaging evidence of malignancy. We strive to produce accurate, complete, and clear reports of imaging services. To assist us in improving patient care, this report was composed using standard report templates and voice recognition software. Therefore, it may contain abnormal punctuation, insertions and/or omissions. Occasional wrong-word or sound-alike substitutions may occur. Though we review the report and make efforts to correct it, we do recommend that the report be read carefully in proper context to recognize any text inaccuracies. Dictated by: Misael Oro M.D. on 03/10/2023 at 10:50 Approved by: Misael Oro M.D. on 03/10/2023 at 10:52
[2023-03-10 12:28] LABS: Add Manual Diff / Slide Review NO; Basophils Absolute Auto 100 /uL (0-100); Basophils Percent Auto 1.3 % (0-2); Eosinophils Absolute Auto 100 /uL (0-450); Eosinophils Percent Auto 2.5 % (2-4); Hematocrit 35.7 % (36-46); Hemoglobin 12.2 g/dL (12.0-16.0); Lymphocytes Absolute Auto 1500 /uL (1100-4500); Lymphocytes Percent Auto 37.9 % (25-40); Mean Corpuscular HGB Conc 34.1 % (30-36); Mean Corpuscular Hemoglobin 37.3 PG (26-34); Mean Corpuscular Volume 109.2 fL (80-100); Monocytes Absolute Auto 500 /uL (0-900); Monocytes Percent Auto 13.3 % (3-14); Neutrophils Absolute Auto 1800 /uL (1500-7000); Platelet Count 109 X10^3/uL (150-400); Red Blood Cell Count 3.27 X10^6/uL (4.0-5.2); Red Cell Distribution Width 14.2 % (11.6-14.8); White Blood Cell Count 4.1 X10^3/uL (4.5-11.0)
[2023-03-10 12:44] LABS: Alanine Aminotransferase 89 IU/L (<35); Albumin 4.5 g/dL (3.5-5.0); Albumin Globulin Ratio 1.3 (1.0-2.8); Alkaline Phosphatase 92 U/L (38-126); Aspartate Aminotransferase 183 IU/L (14-36); BUN Creatinine Ratio 17.1 (6-22); Bilirubin Total 0.6 mg/dL (0.2-1.3); Blood Urea Nitrogen 7 mg/dL (7-17); Calcium 9.1 mg/dL (8.4-10.2); Carbon Dioxide 22 mmol/L (22-32); Chloride 100 mmol/L (98-107); Cholesterol 230 mg/dL (140-199); Estimated Glomerular Filt Rate > 60 mL/min (>60); Globulin 3.4 g/dL (1.7-4.1); Glucose 80 mg/dL (70-100); HDL Cholesterol 79 mg/dL (40-60); HEMOLYSIS < 15 (0-50); LDL Cholesterol Calculated 137 mg/dL (<100); Potassium 4.1 mmol/L (3.4-5.1); Sodium 138 mmol/L (137-145); Total Protein 7.9 g/dL (6.3-8.2); Triglycerides 68 mg/dL (35-150)
[2023-03-10 12:57] LABS: Free T4, Direct Thyroxine 0.87 ng/dL (0.78-2.19)
[2023-03-10 13:11] LABS: Cancer Antigen 125 6.2 U/mL (0-35); Carcinoembryonic Antigen 24.7 ng/mL (0.1-3.0); Thyroid Stimulating Hormone 1.51 uIU/mL (0.47-4.68)
== END ==
PROVIDERS: PCP Family Medicine; Referring Provider Family Medicine; Visit Provider Family Medicine
DX: C56.9 Malignant neoplasm of unspecified ovary (principal); R19.00 Intra-abdominal and pelvic swelling, mass and lump, unspecified site; D64.9 Anemia, unspecified; Z13.29 Encounter for screening for other suspected endocrine disorder; Z13.6 Encounter for screening for cardiovascular disorders; Z13.9 Encounter for screening, unspecified
CPT/HCPCS: 36415; 76830; 76856; 80053; 80061; 82378; 84439; 84443; 85025; 86304

== ENCOUNTER → 2023-03-11 13:59 | Outpatient (CLI) | payer OTHER, SELFPAY | PROVIDERS: PCP Family Medicine; Referring Provider Urology; Visit Provider Urology | DX: N13.30 Unspecified hydronephrosis (principal) | CPT/HCPCS: 87086 ==

== ENCOUNTER → 2023-04-27 11:25 | Outpatient (CLI) | payer OTHER, SELFPAY ==
--- NOTE | 2023-04-27 11:28 | DI.CT.S_ITS ---
PROCEDURE: CT ABDOMEN PELVIS W CON INDICATIONS: Elevated carcinoembryonic antigen [CEA] TECHNIQUE: After the administration of oral and intravenous contrast, axial sections were acquired from the lung bases to the pubic symphysis. Coronal and sagittal reformats were performed. For radiation dose reduction, the following was used: automated exposure control, adjustment of mA and/or kV according to patient size. COMPARISON:[facility], CT, CT KIDNEY URETER BLADDER (KUB), 01/24/2022, 2:38. [facility], US, US PELVIC COMPLETE, 03/10/2023, 10:16. [facility], CT, CT ABDOMEN PELVIS W CON, 02/17/2020, 9:01. FINDINGS: Image quality: Excellent. Lung bases: Lung bases are clear. Heart size is normal. Solid organs: Liver: The liver has no mass or intrahepatic biliary ductal dilatation. Hepatic density decreased consistent steatosis. Biliary: The gallbladder has no gallstones, pericholecystic fluid, gallbladder wall thickening, or surrounding inflammatory change. Pancreas: The pancreas has no mass or ductal dilatation. There is no surrounding inflammation. Spleen: Normal size. There are no masses. Adrenals: No hypertrophy or nodules. Kidneys: No obstructive calculus or hydronephrosis. No solid mass. No cystic mass. Peritoneum and bowel: The distal esophagus and stomach are normal. The small bowel has a normal caliber and appearance. The terminal ileum is normal. The large bowel has increased stool consistent with constipation. The appendix is not definitively visualized and therefore acute appendicitis cannot be excluded; however there are no secondary findings to suggest acute appendicitis. No free fluid or air. Nodes and vessels: No retroperitoneal or mesenteric adenopathy by size criteria. The aorta has atherosclerosis with no aneurysmal dilatation. Miscellaneous: No abdominal wall mass or hernia. PELVIS: Genitourinary: Right ureteral stent has retracted with the distal stent coiled in the bladder and the upper pigtail in the distal ureter. Bladder is normal. Previously seen cystic right adnexal consistent ovarian is no longer present. Bones: Degenerative changes with no focal abnormality. No vertebral body compression fractures. Degenerative disc of L5. IMPRESSION: 1. Right ureteral stent is significantly retracted and is coiled within the bladder with the proximal aspect in the distal ureter. 2. Right adnexal cyst described on 01/24/2022 is no longer present, likely a resolved ovarian cyst. 3. Hepatic steatosis. Dictated by: Chad Chin M.D. on 04/27/2023 at 16:49 Approved by: Chad Chin M.D. on 04/27/2023 at 16:59
== END ==
PROVIDERS: PCP Family Medicine; Referring Provider Internal Medicine; Visit Provider Internal Medicine
DX: K76.89 Other specified diseases of liver (principal)
CPT/HCPCS: 74177; Q9967

== ENCOUNTER 2023-08-31 12:21 | Emergency (ER) | payer OTHER, SELFPAY ==
[2023-08-31 12:28] VITALS: BP 134/73; PULSE 88; RESP 16; TEMP 36.7; O2SAT 100; BMI 19.0
--- NOTE | 2023-08-31 14:21 | ED_ITS ---
HPI - Nausea/Vomiting/Diarrhea <Delfin Rodriguez PA-C - Last Filed: 08/31/23 16:50> General Chief complaint: Nausea/Vomiting/Diarrhea Stated complaint: Diarrhea T-7 Time Seen by Provider: 08/31/23 14:03 Source: patient Mode of arrival: Ambulatory History of Present Illness HPI Narrative: 53-year-old female presents to the ED with 1 week of watery diarrhea. Patient states that she returned from [place] 1 week ago, when her symptoms started. Patient endorses watery diarrhea multiple times daily along with generalized abdominal cramping. Patient denies hematochezia, melena. Patient denies fever, chills, chest pain, shortness of breath, nausea, vomiting, dysuria, lightheadedness, dizziness, syncope. Patient is able to tolerate p.o. well, however she states that her appetite has been poor. Related Data Home Medications Medication Instructions Recorded Confirmed biotin 2,500 mcg capsule 5,000 mcg PO DAILY ##0 06/13/17 03/13/23 ascorbic acid (vitamin C) 500 mg 250 mg PO DAILY 08/23/20 03/13/23 tablet cholecalciferol (vitamin D3) 10 10 mcg PO DAILY 08/23/20 03/13/23 mcg (400 unit) capsule multivitamin 1 tab PO DAILY 08/23/20 03/13/23 Previous Rx's Medication Instructions Recorded levofloxacin 750 mg tablet 750 mg PO DAILY #7 tabs 01/24/22 oxycodone-acetaminophen 5 mg-325 1 tab PO Q6H PRN pain #14 tabs 01/24/22 mg tablet vancomycin 125 mg capsule 125 mg PO QID 10 days #40 caps 08/31/23 Allergies Allergy/AdvReac Type Severity Reaction Status Date / Time No Known Drug Allergies Allergy Verified 08/31/23 12:33 Review of Systems <Delfin Rodriguez PA-C - Last Filed: 08/31/23 16:50> Constitutional Constitutional: Denies chills, Denies fatigue, Denies fever(s), Denies frequent falls, Denies lethargy and Denies weakness Eyes Eyes: Denies change in vision, Denies eye discharge, Denies irritation and Denies loss of vision ENT Ears, Nose, Mouth, and Throat: Denies change in voice, Denies dizziness, Denies neck pain, Denies sore throat and Denies throat swelling Cardiovascular Cardiovascular: Denies chest pain, Denies irregular heart rhythm, Denies lightheadedness, Denies palpitations, Denies dyspnea, Denies dyspnea on exertion and Denies orthopnea Respiratory Respiratory: Denies cough, Denies dyspnea, Denies dyspnea on exertion and Denies wheezing Gastrointestinal Gastrointestinal: Denies abdominal pain, Denies change in bowel habits, Reports cramping, Reports diarrhea, Denies nausea and Denies vomiting Musculoskeletal Musculoskeletal: Denies neck pain and Denies numbness Integumentary/Breasts Skin/Breast: Denies pruritus, Denies erythema, Denies rash and Denies wounds Neurologic Neurologic: Denies behavioral changes, Denies confusion, Denies dizziness, Denies frequent falls, Denies loss of vision, Denies numbness and Denies weakne ss Psychiatric Psychiatric: Denies anxiety, Denies behavioral changes, Denies confusion, Denies depression, Denies homicidal ideation and Denies suicidal ideation Endocrine Endocrine: Denies fatigue, Denies flushing and Denies palpitations Hematologic/Lymphatic Hematologic/Lymphatic: Denies easy bruising Allergic/Immunologic Allergic/Immunologic: Denies urticaria, Denies throat swelling and Denies whe ezing Patient History <Delfin Rodriguez PA-C - Last Filed: 08/31/23 16:50> Medical History Urinary frequency Abnormal mammogram of right breast Colon polyp Depression Anxiety Low blood sugar History of constipation Hx of intestinal obstruction History of UTI Pelvic mass Diarrhea Surgical History S/P biopsy History of dental surgery (~1976) Family History Father Diabetes mellitus Hypertension Prostate cancer History of blood clots Mother Lung cancer Sister Lymphoma Heart disease Grandfather Diabetes mellitus Grandmother Asthma Grandfather Heart attack Grandmother No problems noted. Social History marital status: unmarried,living together household members: significant other occupational status: employed Smoking Status: Current every day smoker alcohol intake: current substance use type: does not use Smoking Status: Current every day smoker alcohol intake frequency: 3 or more drinks per day Substance Use Type: does not use Exam <TOAN Marques Last Filed: 08/31/23 16:50> Narrative Exam Narrative: Const General:?cooperative, healthy appearing and comfortable [facility] Head:?normal to inspection Ears:?hearing grossly normal bilaterally Nose:?external nose normal Face and sinus:?normal facial exam and sinuses nontender Mouth:?oral mucosae normal Throat:?posterior oropharynx normal Eyes General:?appearance normal, both eyes and all related structures Neck Neck:?normal visual inspection and no lymphadenopathy noted Resp Effort & Inspection:?normal respiratory effort Auscultation:?clear to auscultation bilaterally Cardio Rate:?regular rate Rhythm:?regular rhythm GI Abdomen is soft, nondistended. Mildly tender to palpation in the epigastric region. No CVA tenderness. Neuro General:?patient alert, patient awake and patient oriented x3 Initial Vital Signs Initial Vital Signs: Vital Signs Temperature 98.1 F 08/31/23 12:28 Pulse Rate 88 08/31/23 12:28 Respiratory Rate 16 08/31/23 12:28 Blood Pressure 134/73 08/31/23 12:28 Pulse Oximetry 100 08/31/23 12:28 Oxygen Delivery Method Room Air 08/31/23 12:28 <DO Asim Parrish Last Filed: 09/08/23 22:45> Initial Vital Signs Initial Vital Signs: Vital Signs Temperature 98.1 F 08/31/23 12:28 Pulse Rate 88 08/31/23 12:28 Respiratory Rate 16 08/31/23 12:28 Blood Pressure 134/73 08/31/23 12:28 Pulse Oximetry 100 08/31/23 12:28 Oxygen Delivery Method Room Air 08/31/23 12:28 Course <Delfin Rodriguez PA-C - Last Filed: 08/31/23 16:50> Orders Ordered: ED Orders 08/31/23 15:35 GI Panel (Film Array) Stat Vital Signs Vital signs: Vital Signs - 8 hr 08/31/23 12:28 08/31/23 15:40 Temperature 98.1 F Pulse Rate 88 93 H Respiratory Rate 16 18 Blood Pressure 134/73 125/90 Pulse Oximetry 100 96 Oxygen Delivery Method Room Air Room Air <DO Asim Parrish Last Filed: 09/08/23 22:45> Orders Ordered: ED Orders 08/31/23 15:35 GI Panel (Film Array) Stat Vital Signs Vital signs: Vital Signs - 8 hr 08/31/23 12:28 08/31/23 15:40 Temperature 98.1 F Pulse Rate 88 93 H Respiratory Rate 16 18 Blood Pressure 134/73 125/90 Pulse Oximetry 100 96 Oxygen Delivery Method Room Air Room Air MDM - Nausea/Vomiting/Diarrhea <Delfin Rodriguez PA-C - Last Filed: 08/31/23 16:50> Lab Data Labs: Lab Results 08/31/23 Range/Units 15:35 Stl C. cayetanensis PCR Not detected (Not Detect) Stool Rotavirus (PCR) Not detected (Not Detect) Stool Adenovirus (PCR) Not detected (Not Detect) Stool Astrovirus (PCR) Not detected (Not Detect) Stool Cryptosporidium PCR Not detected (Not Detect) Stl E.coli Shiga Tox PCR Not detected (Not Detect) St Sh/Enteroin Ecoli PCR Not detected (Not Detect) Stl Enterotoxigenic E PCR Not detected (Not Detect) Stool EPEC (PCR) Not detected (Not Detect) Stl E. histolytica PCR Not detected (Not Detect) Stool Giardia Lamblia PCR Not detected (Not Detect) Stool Sapovirus (PCR) Not detected (Not Detect) Stl P. shigelloides PCR Not detected (Not Detect) St Y.enterocolitica PCR Not detected (Not Detect) Stool Vibrio (PCR) Not detected (Not Detect) Stl Vibrio cholerae PCR Not detected (Not Detect) Stl Enteroaggr Ecoli PCR Detected (Not Detect) Stl Norovirus GI/GII PCR Not detected (Not Detect) Campylobacter (PCR) Not detected (Not Detect) C. difficile Tox (PCR) Detected (Not Detect) Salmonella (PCR) Not detected (Not Detect) MDM Narrative Medical decision making narrative: 53-year-old female presents to the ED with 1 week of watery diarrhea. Concern for bacterial gastroenteritis versus viral gastroenteritis versus other. Will obtain a GI panel, reassess. Stool sample was insufficient for testing today. Will empirically treat for bacterial gastroenteritis. Recommend follow-up with PCP. Recommend good hydration. Recommend brat diet. ED return precautions discussed with patient. Patient verbalized understanding. Medical records reviewed: Yes <Jeanne Tran DO - Last Filed: 09/08/23 22:45> Lab Data Labs: Lab Results 08/31/23 Range/Units 15:35 Stl C. cayetanensis PCR Not detected (Not Detect) Stool Rotavirus (PCR) Not detected (Not Detect) Stool Adenovirus (PCR) Not detected (Not Detect) Stool Astrovirus (PCR) Not detected (Not Detect) Stool Cryptosporidium PCR Not detected (Not Detect) Stl E.coli Shiga Tox PCR Not detected (Not Detect) St Sh/Enteroin Ecoli PCR Not detected (Not Detect) Stl Enterotoxigenic E PCR Not detected (Not Detect) Stool EPEC (PCR) Not detected (Not Detect) Stl E. histolytica PCR Not detected (Not Detect) Stool Giardia Lamblia PCR Not detected (Not Detect) Stool Sapovirus (PCR) Not detected (Not Detect) Stl P. shigelloides PCR Not detected (Not Detect) St Y.enterocolitica PCR Not detected (Not Detect) Stool Vibrio (PCR) Not detected (Not Detect) Stl Vibrio cholerae PCR Not detected (Not Detect) Stl Enteroaggr Ecoli PCR Detected (Not Detect) Stl Norovirus GI/GII PCR Not detected (Not Detect) Campylobacter (PCR) Not detected (Not Detect) C. difficile Tox (PCR) Detected (Not Detect) Salmonella (PCR) Not detected (Not Detect) Discharge Plan Departure Patient Disposition: Home Clinical Impression: Gastroenteritis Instructions: Gastroenteritis Diet Activity Restrictions/Additional Instructions: You were evaluated in the ED today for diarrhea and abdominal cramping. Your symptoms are likely due to gastroenteritis from food poisoning. You are being prescribed antibiotics. Please take those as prescribed. Please continue to stay well hydrated. It is also helpful to follow a BRAT diet consisting of bananas, rice, apples, toast for the diarrhea. Return to the ED if you have worsening symptoms, unable to keep down fluids, fever, chills. Prescriptions: New vancomycin 125 mg capsule 125 mg PO QID 10 Days Qty: 40 0RF No Action biotin 2,500 MCG capsule 5,000 mcg PO DAILY Qty: 0 cholecalciferol (vitamin D3) 10 mcg (400 unit) capsule 10 mcg PO DAILY ascorbic acid (vitamin C) 500 mg tablet 250 mg PO DAILY multivitamin Tablet 1 tab PO DAILY levofloxacin 750 mg tablet 750 mg PO DAILY Qty: 7 0RF oxycodone-acetaminophen 5-325 mg tablet 1 tab PO Q6H PRN (Reason: pain) Qty: 14 0RF Referrals: Chi Gamboa DO [Primary Care Provider] - Stand Alone Forms: Patient Portal/API ED Sign-out <Jeanne Tran DO - Last Filed: 09/08/23 22:45> Cosign ED Attending Yoselyn Attestation: I was immediately available in the department for consultation. Case was discussed patient tested positive for C diff as well as E coli. Antibiotic treatment for E coli would potentially cause or negate the treatment of the C diff. After discussion we will treat for C diff and if patient improves appropriately does not need additional treatment. If persistent symptoms may need additional treatment.
--- NOTE | 2023-08-31 15:11 | PC.NURSE ---
lab called and stated the stool sample was not adequate due to it being all clear fluid. patient was given new supplies and asked to try again
[2023-08-31 15:40] VITALS: BP 125/90; PULSE 93; RESP 18; O2SAT 96
[2023-08-31 16:51] LABS: Adenovirus F 40/41 Not Detected (Not Detect); Astrovirus Not Detected (Not Detect); Campylobacter Not Detected (Not Detect); Cryptosporidium Not Detected (Not Detect); Cyclospora cayetanensis Not Detected (Not Detect); Entamoeba histolytica Not Detected (Not Detect); Enteropathogenic E.coli Not Detected (Not Detect); Enterotoxigenic E.coli It/st Not Detected (Not Detect); Giardia lamblia Not Detected (Not Detect); Norovirus GI/GII Not Detected (Not Detect); Plesiomonsa shigelloides Not Detected (Not Detect); Rotavirus A Not Detected (Not Detect); Salmonella Not Detected (Not Detect); Sapovirus Not Detected (Not Detect); Shiga-like toxin-prod E.coli Not Detected (Not Detect); Shigella/Enteroinvasive E.coli Not Detected (Not Detect); Vibrio Not Detected (Not Detect); Vibrio cholerae Not Detected (Not Detect); Yersinia enterocolitica Not Detected (Not Detect)
[2023-08-31 17:05] LABS: Clostridium difficile toxin AB Detected (Not Detect); Enteroaggregative E.coli Detected (Not Detect)
--- NOTE | 2023-08-31 18:36 | PC.NURSE ---
patient was called with results of her lab work and told to stop taking her azithro and start taking the vanco that the provider called in
== END 2023-08-31 15:40 | disposition home or self-care (01) ==
PROVIDERS: Emergency Provider Student in an Organized Health Care Education/Training Program; PCP Family Medicine
DX: K52.9 Noninfective gastroenteritis and colitis, unspecified (principal)
CPT/HCPCS: 87507; 99281; 99282